=== PATIENT | female | born 1940 | race Caucasian/White ===

== ENCOUNTER → 2017-02-09 | Outpatient (CLI) | payer OTHER | LOC: FIMAGING 15:00 | PROVIDERS: ATTEND Surgery | DX: E04.2 Nontoxic multinodular goiter (principal); Z98.890 Other specified postprocedural states; Z86.79 Personal history of other diseases of the circulatory system | CPT/HCPCS: 76536-PO; 93880-PO ==

== ENCOUNTER 2017-03-21 12:37 | Inpatient (IN) | payer OTHER ==
[2017-03-21] MEDS ORDERED: ONDANSETRON 4 MG/2 ML VIAL IVP ONE (12:54)
--- NOTE | 2017-03-21 13:09 | CPEKG ---
Heart Rate: 96 RR Interval: 625 P-R Interval: 172 QRSD Interval: 80 QT Interval: 344 QTC Interval: 435 P Kirby: 57 QRS Kirby: -2 T Wave Kirby: 79 EKG Severity - ABNORMAL ECG - EKG Impression: SINUS RHYTHM EKG Impression: MINIMAL ST DEPRESSION, ANTEROLATERAL LEADS Electronically Signed By: Juan Pompa 21-Mar-2017 15:08:35
[2017-03-21] MEDS ORDERED: NITROGLYCERIN 0.4 MG BTL SL ONE (13:20)
[2017-03-21] MEDS ORDERED: NITROGLYCERIN 2% 1 GM PACKET TP ONE ×2 (13:20→14:24)
[2017-03-21] MEDS ORDERED: NS 1,000 ML IV ONE (13:21)
[2017-03-21 13:23] LABS: % IMMATURE GRANULYOCYTES 0.8 % (0.0-1.1); ABSOLUTE IMMATURE GRANULOCYTES 0.08 10^3/uL (0.00-0.10); ADD DIFF? NO; ADD MORPH? NO; ADD SCAN? NO; ATYPICAL LYMPHOCYTE FLAG 10 (0-99); FRAGMENT RBC FLAG 0 (0-99); HEMATOCRIT 40.1 % (38.0-47.0); HEMOGLOBIN 14.7 g/dL (12.6-16.3); LEFT SHIFT FLG 0 (0-99); LIPEMIA HEMOLYSIS FLAG 90 (0-99); MEAN CELL HEMOGLOBIN 30.8 pg (27.9-34.1); MEAN CELL HEMOGLOBIN CONCENTR. 36.7 g/dL (32.4-36.7); MEAN CELL VOLUME 84.1 fL (81.5-99.8); MEAN PLATELET VOLUME 9.6 fL (8.7-11.7); PLATELET CLUMPS FLAG 0 (0-99); PLATELET COUNT 410 10^3/uL (150-400); RED BLOOD CELL COUNT 4.77 10^6/uL (4.18-5.33); RED CELL DISTRIBUTION WIDTH 13.1 % (11.5-15.2)
[2017-03-21 13:32] LABS: INR 0.97 (0.83-1.16); PROTIME(PATIENT) 12.6 SEC (12.0-15.0)
[2017-03-21 13:33] LABS: APTT 23.5 SEC (23.0-38.0)
[2017-03-21 13:36] LABS: ANION GAP 19 mEq/L (8-16); CALCIUM 10.6 mg/dL (8.5-10.4); CARBON DIOXIDE 19 mEq/l (22-31); CHLORIDE 89 mEq/L (97-110); CREATININE 0.8 mg/dL (0.6-1.0); GLOMERULAR FILTRATION RATE > 60; GLUCOSE 124 mg/dL (70-100); POTASSIUM 4.6 mEq/L (3.5-5.2); SODIUM 127 mEq/L (134-144)
[2017-03-21 13:46] LABS: TROPONIN I < 0.012 ng/mL (0-0.034)
--- NOTE | 2017-03-21 13:48 | CPEKG ---
Heart Rate: 101 RR Interval: 594 QRSD Interval: 76 QT Interval: 348 QTC Interval: 452 QRS [place]: -12 T Wave [place]: 122 EKG Severity - ABNORMAL ECG - EKG Impression: ATRIAL FIBRILLATION EKG Impression: VENTRICULAR PREMATURE COMPLEX EKG Impression: PROBABLE LVH WITH SECONDARY REPOL ABNRM Electronically Signed By: Juan Pompa 21-Mar-2017 15:08:21
--- NOTE | 2017-03-21 13:54 | EDPHY ---
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 When asked more about that she describes generalized weakness. She also reports nausea intermittently over the past 3 days that is now worse today. She went to the grocery store shortly prior to arrival to check her blood pressure and reports that was diastolic of "150/129." She explains that she went to the grocery store check her pressure because she felt that she had bilateral lower extremity weakness today and after seeing her blood pressure she felt more heaviness in her legs. She also admits some anxiety because of the hypertension and she reports feeling of an numb tongue. In triage our triage nurse Zina noted that the patient seemed to have some difficulty with word finding initially. Patient reports increase nausea as well. ROS: No fevers or chills. Generalized weakness as above. HEENT: No recent URI symptoms. She has no vision changes. No sore throat. Pulmonary: No dyspnea, or cough Cardiovascular:chest pain. She has noticed any heart palpitations. No presyncopal episodes. GI: Nausea but no vomiting. She has mild anorexia. : No complaints Integumentary: No skin rash Neuro: She reports no significant baseline deficits from her prior stroke after stroke rehab. At the moment she describes symmetric bilateral lower extremity weakness without focal weakness. She describes a vague numbness or tingling feeling to her tongue is well. Endocrine: No complaints Complete review of symptoms otherwise negative Source: Patient Exam Limitations: No limitations - Medical/Surgical History Hx Asthma: Yes Hx Chronic Respiratory Disease: Yes Hx Diabetes: No Hx Cardiac Disease: No Hx Renal Disease: No Hx Cirrhosis: No Hx Alcoholism: No Hx HIV/AIDS: No Hx Splenectomy or Spleen Trauma: No Other PMH: HTN, CAROTID STENOSIS, CVA. TIA, Rheumatiod artheritis. Patent foramina ovale. Stroke 12 15 at [facility] thought to be related to a disrupted carotid plaque. Atrial tachycardia - Family History Significant Family History: No pertinent family hx - Social History Smoking Status: Former smoker Alcohol Use: None Drug Use: None Additional Social History: Increased social stressors recently. - Physical Exam Exam: General Appearance: Alert, no distress. Eyes: Pupils equal and round no pallor or injection. ENT, Mouth: Mucous membranes moist. Respiratory: There are no retractions, lungs are clear to auscultation. Cardiovascular: Irregularly irregular with no murmur gallop or rub. No JVD. No peripheral edema. Gastrointestinal: Abdomen is soft and nontender, no masses, bowel sounds normal. Neurological: GCS 15. Cranial nerves 2-12 intact. Confrontational visual espinoza are intact bilaterally. No pronator drift. No upper lower extremity weakness is appreciated. [id number] is normal bilaterally. Skin: Warm and dry, no rashes. Musculoskeletal: Neck is supple nontender. Extremities are symmetrical, full range of motion. Psychiatric: Mood and affect normal DIFFERENTIAL DIAGNOSIS: After history and physical exam differential diagnosis was considered for new onset AFib, metabolic disarray, DE, hypertensive emergency, stroke, TIA, Constitutional: Initial Vital Signs Temperature (C) 36.6 C 03/21/17 12:43 Heart Rate 112 H 03/21/17 12:43 Respiratory Rate 16 03/21/17 12:43 Blood Pressure 200/93 H 03/21/17 12:43 O2 Sat (%) 93 03/21/17 12:43 O2 Delivery Mode Room Air O2 (L/minute) 2 Allergies/Adverse Reactions: aspirin Allergy (Mild, Verified 03/21/17 13:19) Home Medications: Medication Instructions Recorded Atorvastatin Calcium 03/21/17 Cardizem Cd 03/21/17 Cholecalciferol (Vitamin D3) 03/21/17 Clopidogrel 03/21/17 Diflucan 03/21/17 Folic Acid 03/21/17 Herbals/Supplements -Info Only 03/21/17 Lisinopril 03/21/17 Macrodantin 03/21/17 Nexium 03/21/17 Potassium Chloride 03/21/17 Proair Hfa 03/21/17 Triamterene-Hctz 75-50 mg Tab 03/21/17 Tylenol 03/21/17 Ventolin Hfa 03/21/17 Xeljanz 03/21/17 Medical Decision Making - Diagnostics EKG Interpretation: 12 lead EKG performed shortly after arrival reveals sinus rhythm at 96 with PACs -ST depression mild anterolateral leads similar in appearance to an EKG dated by my interpretation. For complete read please refer to trace master. Repeat EKG performed after blood pressure control with nitroglycerin reveals atrial fibrillation at 1:01 a.m.. Intervals: Normal throughout [place]: QRS of-12, T of 122 overall assessment AFib Please refer to trace master for complete interpretation. Imaging Results: Imaging Impressions Head CT 03/21/17 12:50 Impression: 1. Cerebrovascular atherosclerosis. 2. Old infarct left parietal cortex. 3. No acute hemorrhage or definite acute infarct. 4. Consider MRI of the brain without and with contrast enhancement, if there is continued clinical concern. Findings and recommendations discussed with Emergency Department physician, Juan Pompa, at 1305 hours on March 21, 2017. Final report concurs with initial preliminary interpretation. Imaging: Discussed imaging studies w/ manager of school Radiologist ED Course/Re-evaluation: IV normal saline Discussion: Patient with generalized weakness, hypertension, anxiety, findings of hyponatremia, atrial fibrillation and hypertension. Her initial troponin is negative. With initial hypertension nausea at generalized weakness difficulty with word-finding she had a broad diagnosis. We ruled out hemorrhagic stroke. We currently no evidence of ischemic stroke on initial head CT. No focal deficits, cannot rule out cardiac ischemia of the no significant EKG changes other than paroxysmal atrial fibrillation. Her blood pressure improved with nitroglycerin paste. She also feels subjective improvement her symptoms. Elected to hold off on IV nitroglycerin or other blood pressure medications given her initial improvement. Patient warrants admission for treatment of her paroxysmal AFib, hyponatremia and hypertension and generalized weakness. I discussed the case with Dr. Lea, our hospitalist accepts the patient for admission to PCU bed I answer questions regarding the patient's findings and plan with patient and her granddaughter and son. - Data Points Laboratory Results: Laboratory Results 03/21/17 13:13 03/21/17 13:13 03/21/17 03/21/17 03/21/17 13:13 13:13 13:13 WBC 9.59 10^3/uL H 10^3/uL (3.80-9.50) RBC 4.77 10^6/uL 10^6/uL (4.18-5.33) Hgb 14.7 g/dL g/dL (12.6-16.3) Hct 40.1 % % (38.0-47.0) MCV 84.1 fL fL (81.5-99.8) MCH 30.8 pg pg (27.9-34.1) MCHC 36.7 g/dL g/dL (32.4-36.7) RDW 13.1 % % (11.5-15.2) Plt Count 410 10^3/uL H 10^3/uL (150-400) MPV 9.6 fL fL (8.7-11.7) Neut % (Auto) 77.9 % H % (39.3-74.2) Lymph % (Auto) 10.4 % L % (15.0-45.0) Blaine % (Auto) 9.8 % % (4.5-13.0) Eos % (Auto) 0.9 % % (0.6-7.6) Baso % (Auto) 0.2 % L % (0.3-1.7) Nucleat RBC Rel Count 0.0 % % (0.0-0.2) Absolute Neuts (auto) 7.46 10^3/uL H 10^3/uL (1.70-6.50) Absolute Lymphs (auto) 1.00 10^3/uL 10^3/uL (1.00-3.00) Absolute Monos (auto) 0.94 10^3/uL H 10^3/uL (0.30-0.80) Absolute Eos (auto) 0.09 10^3/uL 10^3/uL (0.03-0.40) Absolute Basos (auto) 0.02 10^3/uL 10^3/uL (0.02-0.10) Absolute Nucleated RBC 0.00 10^3/uL 10^3/uL (0-0.01) Immature Gran % 0.8 % % (0.0-1.1) Immature Gran # 0.08 10^3/uL 10^3/uL (0.00-0.10) PT 12.6 SEC SEC (12.0-15.0) INR 0.97 (0.83-1.16) APTT 23.5 SEC SEC (23.0-38.0) Sodium 127 mEq/L L mEq/L (134-144) Potassium 4.6 mEq/L mEq/L (3.5-5.2) Chloride 89 mEq/L L mEq/L (97-110) Carbon Dioxide 19 mEq/l L mEq/l (22-31) Anion Gap 19 mEq/L H mEq/L (8-16) BUN 20 mg/dL mg/dL (7-23) Creatinine 0.8 mg/dL mg/dL (0.6-1.0) Estimated GFR > 60 Glucose 124 mg/dL H mg/dL (70-100) Calcium 10.6 mg/dL H mg/dL (8.5-10.4) Troponin I < 0.012 ng/mL ng/mL (0-0.034) Medications Given: Discontinued Medications Sodium Chloride (Ns) 1,000 mls @ 0 mls/hr IV ONCE ONE PRN Reason: Wide Open Stop: 03/21/17 13:22 Last Admin: 03/21/17 13:15 Dose: 1,000 mls Nitroglycerin (Nitrostat) 0.4 mg SL EDNOW ONE Stop: 03/21/17 13:21 Last Admin: 03/21/17 13:26 Dose: 0.4 mg Nitroglycerin (Nitro-Bid 2%) 0.5 inch TP EDNOW ONE Stop: 03/21/17 13:21 Last Admin: 03/21/17 13:26 Dose: 0.5 inch Ondansetron HCl (Zofran) 4 mg IVP EDNOW ONE Stop: 03/21/17 12:55 Last Admin: 03/21/17 13:15 Dose: 4 mg Departure - Departure Disposition: [facility] Acute Clinical Impression: Paroxysmal atrial fibrillation, Generalized weakness, Hyponatremia Hypertension Qualifiers: Hypertension type: essential hypertension Qualified Code(s): I10 - Essential ( primary) hypertension Condition: Fair
[2017-03-21] MEDS ORDERED: NITROGLYCERIN 2% 1 GM PACKET ONE (14:30)
[2017-03-21] MEDS ORDERED: ONDANSETRON DISINTEGRATING 4 MG TAB PO PRN (18:23)
[2017-03-21] MEDS ORDERED: oxyCODONE IR 5 MG TAB PO PRN (18:23)
[2017-03-21] MEDS ORDERED: ACETAMINOPHEN 325 MG TAB PO PRN (18:23)
[2017-03-21] MEDS ORDERED: ONDANSETRON 4 MG/2 ML VIAL IVP PRN (18:23)
--- NOTE | 2017-03-21 19:06 | GHP ---
[f rep st] HISTORY AND PHYSICAL DATE OF ADMISSION: 03/21/2017 CHIEF COMPLAINT: Weakness. HISTORY OF PRESENT ILLNESS: This is a 76-year-old female with a history of a stroke as well as rheu matoid arthritis who presents with weakness. She says that her legs have been weak on and off in th e mornings recently. Today, was worse; she felt wobbly. Weakness was really nonfocal. She tells m e she has not been eating or drinking very well over the past few days due to anxiety. She also stephanie t on a healthy diet about 3 months ago which has decreased her overall intake. She is followed by [facility], she has a PFO. She had a stroke back in 2014, thought to be due to critica l carotid stenosis. She tells me she is on a blood thinner, she believes that this is not an anti-p latelet, though she does not remember the name or dose. She went to the grocery store today, checke d her blood pressure. She found that her diastolic was 129. When she presented to Urgent Care, she was noted to be in atrial fibrillation. She was given nitrog lycerin for her blood pressure, and an aspirin. She converted. Apparently, this episode was not ca ught on an EKG. PAST MEDICAL/SURGICAL HISTORY: 1. History of a left parietal stroke, thought to be due to critical left-sided carotid stenosis, st atus post CEA. 2. History of a PFO, she tells me she is on anticoagulation though I am not sure what. 3. Rheumatoid arthritis. 4. Hypertension. 5. Hyperlipidemia. 6. Asthma. 7. Osteoarthritis. 8. Peptic ulcer disease. 9. TIA in April of 2014. PAST SURGICAL HISTORY: Hysterectomy, bilateral knee arthroscopy, back surgery. MEDICATIONS: Please see medication reconciliation. ALLERGIES: Aspirin. FAMILY HISTORY: Her mother had a stroke. SOCIAL HISTORY: She quit smoking about 40 years ago. She occasionally drinks alcohol. REVIEW OF SYSTEMS: A 10-point review of systems is conducted and is negative except per HPI. PHYSICAL EXAM: VITAL SIGNS: Blood pressure 142/77, heart rate 88, respiration rate 16, sat 94% on room air. Temperature is 37.1. GENERAL: The patient is a pleasant female, resting comfortably, in no acute distress. HEENT: Normocephalic, atraumatic. CARDIOVASCULAR: Regular rate and rhythm. She has a faint systolic murmur. PULMONARY: Lungs clear to auscultation bilaterally. ABDOMEN: So ft, nontender, nondistended. SKIN: No rash. : No Ross. NEUROLOGIC: Alert and oriented x3. She is moving all extremities. PSYCHIATRIC: Normal mood and affect. EXTREMITIES: Bilateral hands have significant rheumatoid arthritis stigmata. LABS: White count is 9.5, platelets are 410. Sodium is 127, bicarb is 19. Calcium is 10.6. Tropo madelyn is negative. DATA: 1. Savannah Torre discussed this with Dr. Pompa. 2. EKG, which I personally viewed and interpreted, shows her to be in sinus rhythm. She has a PVC as well as a PAC. 3. Head CT shows old stroke but nothing acute. IMPRESSION AND PLAN: This is a 76-year-old female with atrial fibrillation as well as hyponatremia. 1. Atrial fibrillation: She does not carry a previous diagnosis of atrial fibrillation. She is cu rrently in sinus rhythm. In reviewing her EKGs, the 1st EKG was read as atrial fibrillation, though I believe this is normal sinus rhythm. I am unsure if this was actually caught on telemetry or not . Regardless, she is currently rate controlled. I believe she is on a beta alan. Will need to verify this with Pharmacy. She also tells me she is anticoagulated, thus, there would be no additio nal treatment. 2. Hyponatremia: Either due to atrial fibrillation with poor cardiac output if she was in atrial f ibrillation, or decreased food and water intake recently. She received a liter of fluid at Urgent C are. We will recheck her sodium at 10 o'clock tonight, then in the morning. If it does not improve , would check urine studies though I will hold off for now. 3. Hypertension, uncontrolled: Much better currently. She had nitroglycerin paste placed in the [facility]. We will get her back on her cardiac medications and discontinue the nitroglycerin paste , follow her blood pressure. 4. Neurologic issues: She was reported to have some tongue numbness as well as possible word-findi ng difficulties at Urgent Care. She is maximally treated for CVA at this point with anticoagulation and statin. I suspect more that this was bringing out of old deficits from potentially her hyponat remia or hypertension. We will hold off on further workup at this point. She does have a patent fo ramen ovale, which would predispose her to strokes. She has also had a CEA already. 5. Rheumatoid arthritis: Continue home medicines. 6. Thrombocytosis: Recheck tomorrow. 7. Venous thromboembolism risk should be low as she is on anticoagulation. We will need to verify what she is on with Pharmacy. 8. Code status is [id number]. /[id number]/MODL
[2017-03-21] MEDS ORDERED: ALBUTEROL 60 PUFFS/8 GM MDI IH PRN (21:47)
[2017-03-21] MEDS: ATORVASTATIN CALCIUM 40 MG TAB PO SCH (22:17)
[2017-03-21] MEDS: CLOPIDOGREL BISULFATE 75 MG TAB PO SCH (22:17)
[2017-03-21] MEDS: TRIAMTERENE/HCTZ 75/50 1 EACH TAB PO SCH (22:18)
[2017-03-21 22:29] LABS: ANION GAP 10 mEq/L (8-16); CALCIUM 9.6 mg/dL (8.5-10.4); CARBON DIOXIDE 20 mEq/l (22-31); CHLORIDE 94 mEq/L (97-110); CREATININE 1.1 mg/dL (0.6-1.0); GLOMERULAR FILTRATION RATE 49; GLUCOSE 103 mg/dL (70-100); POTASSIUM 3.6 mEq/L (3.5-5.2); SODIUM 124 mEq/L (134-144)
[2017-03-21 22:39] LABS: TROPONIN I < 0.012 ng/mL (0-0.034)
[2017-03-22] MEDS ORDERED: NS 1,000 ML IV SCH (01:30)
[2017-03-22 06:13] LABS: % IMMATURE GRANULYOCYTES 0.5 % (0.0-1.1); ABSOLUTE IMMATURE GRANULOCYTES 0.03 10^3/uL (0.00-0.10); ADD DIFF? NO; ADD MORPH? NO; ADD SCAN? NO; ATYPICAL LYMPHOCYTE FLAG 20 (0-99); FRAGMENT RBC FLAG 0 (0-99); HEMATOCRIT 34.1 % (38.0-47.0); LEFT SHIFT FLG 0 (0-99); LIPEMIA HEMOLYSIS FLAG 90 (0-99); MEAN CELL HEMOGLOBIN 30.6 pg (27.9-34.1); MEAN CELL HEMOGLOBIN CONCENTR. 35.2 g/dL (32.4-36.7); MEAN PLATELET VOLUME 10.1 fL (8.7-11.7); PLATELET CLUMPS FLAG 0 (0-99); PLATELET COUNT 269 10^3/uL (150-400); RED BLOOD CELL COUNT 3.92 10^6/uL (4.18-5.33); RED CELL DISTRIBUTION WIDTH 13.4 % (11.5-15.2)
[2017-03-22 06:20] LABS: ANION GAP 10 mEq/L (8-16); CALCIUM 9.5 mg/dL (8.5-10.4); CARBON DIOXIDE 21 mEq/l (22-31); CHLORIDE 98 mEq/L (97-110); CREATININE 0.7 mg/dL (0.6-1.0); GLOMERULAR FILTRATION RATE > 60; GLUCOSE 80 mg/dL (70-100); POTASSIUM 3.7 mEq/L (3.5-5.2); SODIUM 129 mEq/L (134-144)
[2017-03-22 06:30] LABS: TROPONIN I < 0.012 ng/mL (0-0.034)
[2017-03-22] MEDS: DILTIAZEM CD 120 MG CAP PO SCH (08:11)
[2017-03-22] MEDS: LISINOPRIL 10 MG TAB PO SCH (08:11)
[2017-03-22] MEDS: TRIAMTERENE/HCTZ 75/50 1 EACH TAB PO SCH (08:11)
[2017-03-22] MEDS: POTASSIUM CL 20 MEQ TAB PO SCH (08:11)
[2017-03-22] MEDS: TOFACITINIB CITRATE 5 MG PO SCH ×2 (08:12→20:27)
[2017-03-22] MEDS ORDERED: TOFACITINIB CITRATE 5 MG PO SCH (09:00)
[2017-03-22] MEDS: CLOPIDOGREL BISULFATE 75 MG TAB PO SCH (11:19)
[2017-03-22] MEDS: ATORVASTATIN CALCIUM 40 MG TAB PO SCH (11:19)
--- NOTE | 2017-03-22 16:01 | ECHO ---
[id number] + + [address] : : [place] [address] : : [phone] + + Adult Echocardiographic Report + -------+ :Name: AZEB HE SStudy Date: 03/22/2017 02:08 PM : : Hospital Admission Number: [id number] Locati on: 216: :: 1940 Gender: Female Height: 68 in : :Age: 76 yrs Race: WH Weight: 180 lb : :Reason For Study: Atrial Fibrillation : : BSA: 2.0 meter s2 : + -------+ MMode/2D Measurements \T\ Calculations IVSd: 0.93 cm LVIDd: 4.8 cm FS: 39.6 % Ao root diam: LVPWd: 0.68 cm LVIDs: 2.9 cm EDV(Teich): 3.3 cm 105.4 ml LA dimension: ESV(Teich): 3.8 cm 31.6 ml EF(Teich): 70.1 % LVLd ap4: 7.5 cm SV(MOD-sp4): EDV(MOD-sp4): 59.0 ml 80.0 ml LVLs ap4: 6.5 cm ESV(MOD-sp4): 21.0 ml EF(MOD-sp4): 73.8 % Normal Measurement Values: + + :LVIDd (3.5-5.7cm) IVSd (0.6-1.1cm) LVPWd (0.6-1.1cm) Aortic Root (2.0-3.7cm)Left Atrium (1.5-4.0cm): :LV Vol(d) (76-115ml) LV Vol(s) (29-48ml) Ejec Fraction (50-65%)PV Adam (0.6- 1.2m/s) TV Adam (0.4-1.0m/s) : :MV E Adam (0.8-1.0m/s)MV A Adam (0.3-1.0m/s)LVOT Adam (0.7-1.2m/s) Asc Ao Adam ( 0.9-1.8m/s) : + + Doppler Measurements \T\ Calculations MV E max adam: 68.1 cm/sec Ao mean P.0 mmHg TR max adam: 293.2 cm/sec MV A max adam: 76.5 cm/sec Ao V2 mean: 77.9 cm/sec TR max P.4 mmHg MV E/A: 0.89 Ao V2 VTI: 23.3 cm RAP systole: 5.0 mmHg RVSP(TR): 39.4 mmHg Left Ventricle The left ventricle is normal in size. There is normal left ventricular wall thickness. The left ventricle is hyperdynamic. Ejection Fraction = 70-75%. No regional wall motion abnormalities noted. Right Ventricle The right ventricle is normal in size and function. Atria The left atrial size is normal. Right atrial size is normal. The interatrial septum is intact with no evidence for an atrial septal defect. Mitral Valve The mitral valve is normal. Borderline bileaflet mitral valve prolapse. There is no mitral valve stenosis. There is mild mitral regurgitation. Tricuspid Valve Normal tricuspid valve. There is trace to mild tricuspid regurgitation. Aortic Valve The aortic valve is trileaflet. The aortic valve opens well. There is no aortic stenosis. There is no aortic insufficiency. Pulmonic Valve The pulmonic valve is normal in structure and function. Trace pulmonic valvular regurgitation. Great Vessels The aortic root is normal size. Pericardium/Pleural There is a fat pad seen. trivial pericardial effusion. Conclusion A complete two-dimensional transthoracic echocardiogram was performed (2D, M-mode, Doppler and color flow Doppler). Normal LV size and wall motion. The left ventricle is hyperdynamic. Ejection Fraction = 70-75%. Borderline bileaflet mitral valve prolapse. There is mild mitral regurgitation. There is trace to mild tricuspid regurgitation. Moderately elevated RVSP. Trace pulmonic valvular regurgitation. There is a fat pad seen. Trivial pericardial effusion. Final Reading Physician: Ramakrishna Leong signed on 03/22/2017 04:00 PM Ordering Physician: Raudel Niño Performed By: Santa Irving RDCS
[2017-03-22] MEDS ORDERED: SODIUM CHLORIDE 1,000 MG TAB PO ONE (19:17)
--- NOTE | 2017-03-22 19:22 | HOSPPROG ---
Hospitalist Progress Note Assessment/Plan: DIAGNOSES: -Hyponatremia, euvolemic - a urine sodium would be helpful diagnostically and mechanistically at this point -Sinus rhythm with frequent PACs - I reviewed her EKGs in cardiac monitoring in detail with Dr. Garvin. There is no definite atrial fibrillation but there are frequent PACs. Notably the patient had the same scenario when she was here for stroke a couple years ago when she was originally diagnosed with atrial fibrillation but on further review the diagnosis was changed to atrial tachycardia. She subsequently had outpatient cardiac monitoring with Dr. Rivera showing no atrial fibrillation -Multiple symptoms that she presents with including weakness, decreased appetite , weakness and gait instability, are likely due to her hyponatremia - history of stroke PLANS: -continue to follow her sodium closely and make sure that it does not decline any further -Will check a urine sodium as well as TSH to look for possible causes are mechanisms - continue food service utility worker at this time to be certain that we truly do not see atrial fibrillation -Continue her usual cardiac medications and Plavix at this time SUBJECTIVE: The patient feels much better overall today, with improvement in all of her presenting symptoms. In addition the daughter notes that the patient looks much better to her as well today and is ambulating better and mentating better overall than she has for some time OBJECTIVE Vitals reviewed: stable without fever Talent Management Manager, my review: on careful review this is a sinus rhythm with frequent PACs Exam: alert oriented skin warm dry color ok resps not labored lungs clear BSs heart regular abd soft nondistended nontender, bowel sounds present limbs warm, no edema iv site ok Objective: Vital Signs Temp Pulse Resp BP Pulse Ox 36.6 C 64 20 104/66 95 03/22/17 16:00 03/22/17 16:00 03/22/17 08:00 03/22/17 16:00 03/22/17 16:00 Laboratory Results 03/22/17 04:51 03/22/17 04:51 03/21/17 03/22/17 03/23/17 06:59 06:59 06:59 Intake Total 1300 1000 Balance 1300 1000 PT 12.6 SEC (12.0-15.0) 03/21/17 13:13 INR 0.97 (0.83-1.16) 03/21/17 13:13 ICD10 Worksheet Patient Problems: Problems Problem Status Onset Generalized weakness Acute Hypertension Acute Hyponatremia Acute Paroxysmal atrial fibrillation Acute Atrial fibrillation Acute Light headed Acute Stroke Acute TIA (transient ischemic attack) Acute
--- NOTE | 2017-03-22 19:25 | HOSPPROG ---
Hospitalist Progress Note Assessment/Plan: DIAGNOSES: -Hyponatremia, euvolemic - a urine sodium would not likely be helpful diagnostically and mechanistically at this point due to her diuretic but will check, and will check tsh and cortisol -this may all be due to her diuretic -Sinus rhythm with frequent PACs - I reviewed her EKGs in cardiac monitoring in detail with Dr. Garvin. There is no definite atrial fibrillation but there are frequent PACs. Notably the patient had the same scenario when she was here for stroke a couple years ago when she was originally diagnosed with atrial fibrillation but on further review the diagnosis was changed to atrial tachycardia. She subsequently had outpatient cardiac monitoring with Dr. Rivera showing no atrial fibrillation -Multiple symptoms that she presents with including weakness, decreased appetite , weakness and gait instability, are likely due to her hyponatremia -history of stroke PLANS: -will stop her diuretic and she may need other BP medicine -continue to follow her sodium closely and make sure that it does not decline any further -Will check a urine sodium as well as TSH to look for possible causes are mechanisms -continue cardiac cath tech at this time to be certain that we truly do not see atrial fibrillation -Continue her usual cardiac medications and Plavix at this time SUBJECTIVE: The patient feels much better overall today, with improvement in all of her presenting symptoms. In addition the daughter notes that the patient looks much better to her as well today and is ambulating better and mentating better overall than she has for some time OBJECTIVE Vitals reviewed: stable without fever Leather Cutter, my review: on careful review this is a sinus rhythm with frequent PACs Exam: alert oriented skin warm dry color ok resps not labored lungs clear BSs heart regular abd soft nondistended nontender, bowel sounds present limbs warm, no edema iv site ok Objective: Vital Signs Temp Pulse Resp BP Pulse Ox 36.6 C 64 20 104/66 95 03/22/17 16:00 03/22/17 16:00 03/22/17 08:00 03/22/17 16:00 03/22/17 16:00 Laboratory Results 03/22/17 04:51 03/22/17 04:51 03/21/17 03/22/17 03/23/17 06:59 06:59 06:59 Intake Total 1300 1000 Balance 1300 1000 PT 12.6 SEC (12.0-15.0) 03/21/17 13:13 INR 0.97 (0.83-1.16) 03/21/17 13:13 ICD10 Worksheet Patient Problems: Problems Problem Status Onset Generalized weakness Acute Hypertension Acute Hyponatremia Acute Paroxysmal atrial fibrillation Acute Atrial fibrillation Acute Light headed Acute Stroke Acute TIA (transient ischemic attack) Acute
[2017-03-23 04:59] LABS: ANION GAP 11 mEq/L (8-16); CALCIUM 9.5 mg/dL (8.5-10.4); CARBON DIOXIDE 21 mEq/l (22-31); CHLORIDE 94 mEq/L (97-110); CREATININE 0.6 mg/dL (0.6-1.0); GLOMERULAR FILTRATION RATE > 60; GLUCOSE 98 mg/dL (70-100); POTASSIUM 3.1 mEq/L (3.5-5.2); SODIUM 126 mEq/L (134-144)
[2017-03-23 05:26] LABS: CORTISOL-AM 9.8 ug/dL (4.5-22.7)
[2017-03-23] MEDS: POTASSIUM CL 20 MEQ TAB PO SCH (08:31)
[2017-03-23] MEDS: DILTIAZEM CD 120 MG CAP PO SCH (08:32)
--- NOTE | 2017-03-23 10:43 | GCON ---
[f rep st] CONSULTATION CARDIOLOGY CONSULTATION DATE OF CONSULTATION: 03/22/2017 PRIMARY SUPERVISOR P[employer]ER PRODUCTS: Dr. Rivera. REASON FOR CONSULTATION: We were asked by Dr. Niño to evaluate this patient for her possible atrial fibrillation and presentation of weakness and hypertension. HISTORY OF PRESENT ILLNESS: The patient is a 76-year-old female who is typically followed by Dr. Rivera. She has a history of carotid stenosis, status post carotid endarterectomy, history of left parietal stroke, history of a small PFO seen on YFN, hypertension, dyslipidemia, rheumatoid arthritis, who was admitted via the emergency department for weakness, nausea, and worsening blood pressure. She reports onset of weakness over the past few weeks. She admits to poor p.o. intake due to this. She denies any focal deficits with her weakness. She also admits to worsening home stress as she has decided to sell her home and move to a different area. She was in a grocery store and checked her blood pressure and found it to be severely elevated with a diastolic blood pressure of 129. She denies any previous history of such elevated pressures as she has been on medical management for this. She has worn event monitors in our office that showed short runs of atrial tachycardia and a very brief run of AFib lasting 3 seconds. The monitor was dated 11/26/2015. She has not been noting any palpitations, chest pains, or dyspnea per se. ECG in the emergency department was interpreted as atrial fibrillation. She was therefore sent over for observation. Currently, she reports feeling improved. She does have chronic pain that limits her mobility, primarily in her knees. PAST MEDICAL HISTORY: 1. History of left parietal stroke thought to be related to a critical left- sided carotid stenosis, status post carotid endarterectomy. 2. PFO found on 10/28/2015 on YFN. 3. History of rheumatoid arthritis. 4. History of hypertension. 5. Dyslipidemia. 6. Asthma. 7. Osteoarthritis. 8. Peptic ulcer disease. 9. TIA in April of 2014. PAST SURGICAL HISTORY: Hysterectomy, bilateral knee arthroscopy, and back surgery. MEDICATIONS: Outpatient medications include atorvastatin, Tylenol, potassium, clopidogrel, vitamin D3, folic acid, Maxzide, Xeljanz, lisinopril, albuterol, diltiazem ER. ALLERGIES: To aspirin. FAMILY HISTORY: Mother with a stroke. SOCIAL HISTORY: The patient smoked for 40 years. She is a nonsmoker currently. She reports occasional alcohol intake. Marital status is . REVIEW OF SYSTEMS: As per HPI, a complete 10-point review of systems was obtained and is negative except for what is dictated. PHYSICAL EXAMINATION: VITAL SIGNS: BP of 103/52, heart rate of 81, respirations 16, O2 saturation 96% on room air, temp of 98.8 degrees Fahrenheit. GENERAL: She is a very pleasant female, in no apparent distress. HEENT: Head is normocephalic, atraumatic. Eyes are PERRL, without scleral icterus. NECK: Supple, without carotid bruit. Trachea is midline. SKIN: Warm and dry, without edema present. HEART: Regular rate and rhythm, with occasional extrasystolic beat auscultated. LUNGS: Clear. ABDOMEN: Soft, with normoactive bowel sounds. : No Ross present. PSYCH: Normal mood and affect for a given situation. NEURO: No focal deficits detected. MUSCULOSKELETAL: Arthritic deformities particularly noted in the bilateral hands. LABORATORY DATA: CBC with WBC 5.78, hemoglobin 12, hematocrit 34, platelet count of 269. BMP with sodium 126, potassium 3.1, chloride 94, CO2 21, BUN 14, creatinine 0.6, glucose 98. Troponins negative x3. Head CT from 03/21/2017 reviewed, shows cerebrovascular atherosclerosis with an old parietal cortex infarct. 12-lead ECG, personally interpreted demonstrates sinus rhythm, 1 PVC present. There are PACs present. Echocardiogram shows EF of 70% to 75%, hyperdynamic LV, borderline bileaflet mitral valve prolapse, mild MR, moderately elevated RVSP. A 10/28/2015 YFN reviewed which shows aneurysmal atrial septum with PFO present. I spoke with both Dr. Garvin and Dr. Niño regarding patient's care. IMPRESSION AND PLAN: The patient is a 76-year-old female who presents with weakness and hyponatremia. 1. Arrhythmias. Patient has a history of atrial tachycardia and PACs. Telemetry monitoring here is notable for frequent premature atrial contractions and premature ventricular contractions. No atrial fibrillation detected. She may be continued on clopidogrel as aspirin is listed as an allergy. 2. Hyponatremia. This is being managed by the hospital medicine group and is likely related to dehydration and poor p.o. intake. 3. Hypertension. She apparently had a very elevated blood pressure outside of the hospital. Upon arrival, she was 200/93, however, her blood pressures have been well controlled since admission. When further questioned, she admits that she may have missed some doses of her medicines. The patient is deemed safe from a cardiology perspective to be discharged to home with outpatient followup. She may follow up with Dr. Rivera in 1-2 months. /[id number]/MODL MTDD
[2017-03-23 10:50] VITALS: BP 129/72; PULSE 82; RESP 17; TEMP 98.6; O2SAT 94
[2017-03-23] MEDS: LISINOPRIL 10 MG TAB PO SCH (10:52)
[2017-03-23] MEDS: TOFACITINIB CITRATE 5 MG PO SCH ×2 (10:53→13:08)
[2017-03-23] MEDS ORDERED: SODIUM CHLORIDE 1,000 MG TAB PO ONE (11:04)
[2017-03-23] MEDS ORDERED: POTASSIUM CL 20 MEQ/15 ML UDCUP PO ONE (11:04)
[2017-03-23] MEDS ORDERED: POTASSIUM CL 20 MEQ TAB PO ONE (11:15)
[2017-03-23] MEDS: CLOPIDOGREL BISULFATE 75 MG TAB PO SCH (11:24)
[2017-03-23] MEDS: ATORVASTATIN CALCIUM 40 MG TAB PO SCH (11:24)
[2017-03-23 13:43] LABS: ANION GAP 12 mEq/L (8-16); CARBON DIOXIDE 23 mEq/l (22-31); CHLORIDE 93 mEq/L (97-110); CREATININE 0.9 mg/dL (0.6-1.0); GLOMERULAR FILTRATION RATE > 60; GLUCOSE 111 mg/dL (70-100); POTASSIUM 3.8 mEq/L (3.5-5.2); SODIUM 128 mEq/L (134-144)
--- NOTE | 2017-03-23 18:50 | PDDCSUM ---
Discharge Summary Discharge Summary: DISCHARGE DIAGNOSES: -Hyponatremia, Hypovolemic and suspected due to her diuretic therapy as well as decreased oral intake of food and solute, unable to rule out contribution of SIADH -hypokalemia due to her diuretic medication -Sinus rhythm with frequent PACs -Presenting symptoms of weakness, decreased appetite, weakness and gait instability, are likely due to her hyponatremia, and no resolved with management here -chronic hypertension with good blood pressure good control here in the hospital off of her diuretic -history of stroke PROCEDURES: CT scan of head with no acute abnormalities HOSPITAL COURSE SUMMARY: The patient presented to the hospital with multiple symptoms including weakness gait instability decreased appetite wooziness and slowed mentation. She is found have significant hyponatremia which is felt to be the cause of the symptoms. She has dramatically improved with treatment of her dehydration and hyponatremia, and feels back to her baseline in terms of symptoms. She is eating well ambulating well and is felt stable for discharge to home. She is advised that she will not likely do well with thiazide diuretic therapy in the future and this medicine is discontinued at this point. She is advised to check her blood pressure twice daily and follow up with Dr. Elizalde next week bringing the blood pressure numbers in for review. She may need to add further blood pressure medication but she remains on 2 other blood pressure medicines at this time. At the time of admission the patient had EKGs and was felt to have atrial fibrillation. However on careful review of her EKGs and cardiac rhythm strip with Cardiology this is felt to be sinus rhythm with frequent PACs. The patient had similar episode a year and half ago when she presented with a stroke. At that time her stroke was felt to be due to atherosclerotic unstable plaque in the carotid vessels. At that time she feet similarly was initially diagnosed with atrial fibrillation but on similar review was felt to be in sinus rhythm with PACs. Subsequent to that hospital admission she had outpatient cardiac monitoring which demonstrated no atrial fibrillation. At this time there is no recommendation for any change in treatment and she is to continue her Plavix therapy. PENDING TEST RESULTS: No pending results test results The patient should have follow-up electrolyte testing with Dr. Bryant next week MEDICATION CHANGES: Discontinue triamterene hydrochlorothiazide FOLLOW-UP PLAN: With Dr. Elizalde next week She will collect blood pressures twice daily to take in for review with Dr. Hakan nicole Greater than 35 minutes bedside and care coordination time today
== END 2017-03-23 17:19 | disposition home or self-care (01) | DRG 641 ==
LOC: CED 12:37 → INTOOBSV 14:01 → CEDHOLD 14:01 → F2W 17:27 → OBSVTOIN 03-22 19:56
PROVIDERS: ADMIT Student in an Organized Health Care Education/Training Program; ATTEND Internal Medicine
DX: E87.1 Hypo-osmolality and hyponatremia (principal); E87.6 Hypokalemia; I48.0 Paroxysmal atrial fibrillation; Q21.1 Atrial septal defect; I49.1 Atrial premature depolarization; F41.9 Anxiety disorder, unspecified; M06.9 Rheumatoid arthritis, unspecified; I10 Essential (primary) hypertension; E78.5 Hyperlipidemia, unspecified; J45.909 Unspecified asthma, uncomplicated; K27.9 Peptic ulcer, site unspecified, unspecified as acute or chronic, without hemorrhage or perforation; Z66 Do not resuscitate; Z86.73 Personal history of transient ischemic attack (TIA), and cerebral infarction without residual deficits
CPT/HCPCS: 70450-PO; 80048-PO; 84484-PO; 85025-PO; 85610-PO; 85730-PO; 96374; 97116-GP; 97161-GP; G0378; G8978-GP-CI; G8979-GP-CI; G8980-GP-CI; J2405

== ENCOUNTER 2017-03-25 16:25 | Emergency (ER) | payer OTHER ==
[2017-03-25 16:38] VITALS: RESP 16; TEMP 98.2
--- NOTE | 2017-03-25 17:21 | EDPHY ---
H & P Stated Complaint: high blood pressures HPI/ROS: CHIEF COMPLAINT: High blood pressure History by patient HISTORY OF PRESENT ILLNESS: 76-year-old woman with a history of hypertension and stroke in the past who was discharged from the hospital 2 days ago after an episode of hyponatremia thought felt to be due to her diuretic presents today with elevated blood pressure reading at the grocery store. Patient was discharged after being taken off of her diuretic and told to monitor her blood pressure twice a day. She went to the grocery store to check her blood pressure this afternoon and noted that it was 154/90 something and became concerned that the bottom number was too high. This made her feel panicky and gave her palpitations. Patient has been worked up for palpitations in the past and has been told that she does not have atrial fibrillation but that she has multiple premature atrial contractions. Today while her blood pressure was elevated she denied any chest pain, shortness of breath, focal numbness or weakness or other problems. She has felt that her shoes were slightly tight but does not think that her legs look swollen. She has not gained any weight. Patient does note that last night she ate fried chicken from the grocery store and an [place] salad that had msg in it and that she has had these kind of symptoms after eating msg in the past. In addition she notes this was an excessively salty meal. Patient states she is currently asymptomatic and feels more calm now that she knows her blood pressure is better. REVIEW OF SYSTEMS: As in HPI, and all other systems reviewed and are negative Source: Patient - Medical/Surgical History Hx Asthma: Yes Hx Chronic Respiratory Disease: Yes Hx Diabetes: No Hx Cardiac Disease: No Hx Renal Disease: No Hx Cirrhosis: No Hx Alcoholism: No Hx HIV/AIDS: No Hx Splenectomy or Spleen Trauma: No Other PMH: HTN, CAROTID STENOSIS, CVA. TIA, Rheumatiod artheritis. Patent foramina ovale. Stroke 12 15 at [facility] thought to be related to a disrupted carotid plaque. Atrial tachycardia - Family History Significant Family History: No pertinent family hx - Social History Smoking Status: Former smoker - Physical Exam Exam: General Appearance: Alert, comfortable non-ill appearing. Eyes: Pupils equal and round no pallor or injection. ENT, Mouth: Mucous membranes moist. Respiratory: Normal, effort, There are no retractions, lungs are clear to auscultation. Cardiovascular: Regular rate and rhythm. Gastrointestinal: Abdomen is soft and nontender, no masses, bowel sounds normal. Neurological: Awake, alert and oriented x 3, no pronator drift, normal gait, no pronator drift, normal gait Skin: Warm and dry, no rashes. Musculoskeletal: Neck is supple nontender. Extremities are symmetrical, full range of motion. DP pulses 2+ and equal bilaterally, trace pretibial edema on the left, no edema on the right Psychiatric: Patient has normal affect, there is no agitation. Constitutional: Initial Vital Signs Temperature (C) 36.8 C 03/25/17 16:34 Heart Rate 90 03/25/17 16:34 Respiratory Rate 16 03/25/17 16:34 Blood Pressure 172/149 H 03/25/17 16:34 O2 Sat (%) 96 03/25/17 16:34 O2 Delivery Mode Room Air Allergies/Adverse Reactions: aspirin Allergy (Mild, Verified 03/25/17 16:38) Home Medications: Medication Instructions Recorded Acetaminophen [Tylenol ES 500 mg 1,000 mg PO Q2D PRN 03/21/17 (*)] Albuterol [Proventil Inhaler HFA 1 - 2 puffs IH Q4H PRN 03/21/17 (*)] Atorvastatin Calcium [Lipitor 40 40 mg PO DAILY@12 03/21/17 mg (*)] Cholecalciferol Vit D3 [Vitamin D3 10,000 units PO DAILY 03/21/17 (*)] Clopidogrel Bisulfate [Plavix (*)] 75 mg PO DAILY@12 03/21/17 Diltiazem HCl [Diltiazem 24Hr ER] 120 mg PO DAILY 03/21/17 Folic Acid [Folic Acid 1 MG (*)] 1 mg PO DAILY 03/21/17 Lisinopril [Zestril 10 mg (*)] 10 mg PO DAILY 03/21/17 Tofacitinib Citrate [Xeljanz] 5 mg PO BID 03/21/17 Medical Decision Making ED Course/Re-evaluation: [age] woman with a history of hypertension who was discharged from hospital 2 days ago because of hyponatremia related to her diuretic which she is now no longer taking presents today because her blood pressure was high when she checked it at the grocery store. Patient was essentially asymptomatic with this. He she has had an extensive recent workup for palpitations and is known to have multiple PACs frequently confused or atrial fibrillation. Today there is no evidence of acute hypertensive emergency. She has also had a high salt load yesterday evening. She has an appointment pending with her primary care physician in 4 days. There is no significant leg edema. I therefore think it is reasonable to discharge her with close follow-up with her primary care physician to decide what to do about her blood pressure medication. We discussed return precautions and signs and symptoms of hypertensive emergencies. Patient expressed verbal understanding of the plan. Departure - Departure Disposition: Home, Routine, Self-Care Clinical Impression: Elevated blood pressure reading Condition: Good Instructions: Chronic Hypertension (ED) Additional Instructions: You were seen by Dr. Emelia Silverman today. Continues taking medicines as prescribed. Follow up with your doctor as scheduled on Tuesday to discuss the need for restarting a diuretic medication or additional blood pressure medications. If you are going to check her blood pressure comma tried checking early in the morning when he 1st get up. Return for any worsening or new concerns. Referrals: Angie Elizalde MD [Primary Care Provider] - As per Instructions
[2017-03-25 17:38] VITALS: BP 178/94; PULSE 84; O2SAT 95
== END 2017-03-25 17:00 | disposition home or self-care (01) ==
LOC: CED 16:25
DX: I10 Essential (primary) hypertension (principal); J45.909 Unspecified asthma, uncomplicated; Z86.73 Personal history of transient ischemic attack (TIA), and cerebral infarction without residual deficits; Z87.891 Personal history of nicotine dependence

== ENCOUNTER 2017-04-27 18:02 | Emergency (ER) | payer OTHER ==
[2017-04-27 18:53] LABS: INR 0.95 (0.83-1.16); PROTIME(PATIENT) 12.6 SEC (12.0-15.0)
[2017-04-27 18:54] LABS: APTT 24.1 SEC (23.0-38.0)
[2017-04-27 18:56] LABS: ANION GAP 15 mEq/L (8-16); CALCIUM 10.6 mg/dL (8.5-10.4); CARBON DIOXIDE 19 mEq/l (22-31); CHLORIDE 106 mEq/L (97-110); CREATININE 1.2 mg/dL (0.6-1.0); GLOMERULAR FILTRATION RATE 44; GLUCOSE 104 mg/dL (70-100); POTASSIUM 3.6 mEq/L (3.5-5.2); SODIUM 140 mEq/L (134-144)
--- NOTE | 2017-04-27 19:12 | CPEKG ---
Heart Rate: 106 RR Interval: 566 P-R Interval: 200 QRSD Interval: 74 QT Interval: 340 QTC Interval: 452 P [place]: 60 QRS [place]: -18 T Wave [place]: 125 EKG Severity - ABNORMAL ECG - EKG Impression: SINUS TACHYCARDIA EKG Impression: LVH WITH SECONDARY REPOLARIZATION ABNORMALITY Electronically Signed By: Dejuan Montelongo 27-Apr-2017 22:23:15
[2017-04-27 19:14] LABS: % IMMATURE GRANULYOCYTES 0.5 % (0.0-1.1); ABSOLUTE IMMATURE GRANULOCYTES 0.05 10^3/uL (0.00-0.10); ADD DIFF? NO; ADD MORPH? NO; ADD SCAN? NO; ATYPICAL LYMPHOCYTE FLAG 0 (0-99); FRAGMENT RBC FLAG 0 (0-99); HEMATOCRIT 39.8 % (38.0-47.0); HEMOGLOBIN 13.7 g/dL (12.6-16.3); LEFT SHIFT FLG 0 (0-99); LIPEMIA HEMOLYSIS FLAG 90 (0-99); MEAN CELL HEMOGLOBIN 30.7 pg (27.9-34.1); MEAN CELL HEMOGLOBIN CONCENTR. 34.4 g/dL (32.4-36.7); MEAN CELL VOLUME 89.2 fL (81.5-99.8); MEAN PLATELET VOLUME 9.8 fL (8.7-11.7); PLATELET CLUMPS FLAG 0 (0-99); PLATELET COUNT 346 10^3/uL (150-400); RED BLOOD CELL COUNT 4.46 10^6/uL (4.18-5.33); RED CELL DISTRIBUTION WIDTH 13.2 % (11.5-15.2)
[2017-04-27 19:28] LABS: COLOR YELLOW; LEUKOCYTE ESTERASE,URINE 2+ (NEGATIVE); NITRITE,URINE NEGATIVE (NEGATIVE)
--- NOTE | 2017-04-27 19:29 | EDPHY ---
H & P Stated Complaint: bleeding from mouth HPI/ROS: Chief Complaint: Bleeding from mouth HPI: 76-year-old woman developed bleeding from the mouth this afternoon. Patient did bite the inside of her cheek earlier today. She did not notice any problems until she felt the sensation of something back her throat. She coughed and brought up a clot of blood. She is on blood thinners for an irregular heartbeat. No lightheadedness or syncope. No chest pain or palpitations. Has not had any nose bleeds. Has not had any congestion or significant cough. ROS: 10 point Review of Systems is negative except as noted in the HPI. PMH: Irregular heartbeat Social History: No smoking, no alcohol, no recreational drug use Family History: non-contributory Physical Exam: Gen: Awake, Alert, No Distress HEENT: Nose: no rhinorrhea, no epistaxis Eyes: PERRLA, EOMI Mouth: Moist mucosa, active bleeding from the inside of her right cheek from a open laceration about 3 mm, no other source of bleeding noted Neck: Supple, no JVD Chest: nontender, lungs clear to auscultation Heart: S1, S2 normal, no murmur Abd: Soft, non-tender, no guarding Back: no CVA tenderness, no midline tenderness Ext: no edema, non-tender Skin: no rash Neuro: CN II-XII intact, Sensation grossly intact, Strength 5/5 in bilateral upper and lower extremities - Personal History Current Tetanus Diphtheria and Acellular Pertussis (TDAP): Unsure - Medical/Surgical History Hx Asthma: Yes Hx Chronic Respiratory Disease: Yes Hx Diabetes: No Hx Cardiac Disease: No Hx Renal Disease: No Hx Cirrhosis: No Hx Alcoholism: No Hx HIV/AIDS: No Hx Splenectomy or Spleen Trauma: No Other PMH: HTN, CAROTID STENOSIS, CVA. TIA, Rheumatiod artheritis. Patent foramina ovale. Stroke 12 15 at [facility] thought to be related to a disrupted carotid plaque. Atrial tachycardia - Social History Smoking Status: Former smoker Constitutional: Initial Vital Signs Temperature (C) 37.3 C 04/27/17 18:22 Heart Rate 121 H 04/27/17 18:22 Respiratory Rate 18 04/27/17 18:22 Blood Pressure 186/143 H 04/27/17 18:22 O2 Sat (%) 98 04/27/17 18:22 O2 Delivery Mode Nasal Cannula O2 (L/minute) 2 Allergies/Adverse Reactions: aspirin Allergy (Mild, Verified 03/25/17 16:38) Home Medications: Medication Instructions Recorded Acetaminophen [Tylenol ES 500 mg 1,000 mg PO Q2D PRN 03/21/17 (*)] Albuterol [Proventil Inhaler HFA 1 - 2 puffs IH Q4H PRN 03/21/17 (*)] Atorvastatin Calcium [Lipitor 40 40 mg PO DAILY@12 03/21/17 mg (*)] Cholecalciferol Vit D3 [Vitamin D3 10,000 units PO DAILY 03/21/17 (*)] Clopidogrel Bisulfate [Plavix (*)] 75 mg PO DAILY@12 03/21/17 Diltiazem HCl [Diltiazem 24Hr ER] 120 mg PO DAILY 03/21/17 Folic Acid [Folic Acid 1 MG (*)] 1 mg PO DAILY 03/21/17 Lisinopril [Zestril 10 mg (*)] 10 mg PO DAILY 03/21/17 Tofacitinib Citrate [Xeljanz] 5 mg PO BID 03/21/17 Nitrofurantoin Monohyd/M-Cryst 100 mg PO BID #10 capsule 04/27/17 [Macrobid 100 mg Capsule] Medical Decision Making - Diagnostics EKG Interpretation: ECG time 7:10 p.m., sinus tachycardia rate of 106, normal axis, LVH with some secondary repolarization abnormality. No acute ST or T-wave changes. ED Course/Re-evaluation: Patient arrived very tachycardic and hypertensive. After bleeding was addressed ECG was obtained and showed a sinus tachycardia with a rate of 106, no acute abnormalities. Blood pressure came down to 175 systolic as well. Bleeding was treated with an injection of lidocaine with epinephrine. Direct pressure was applied 45 minutes. She had no further bleeding. Coags are normal. CBC is normal. Patient has been discharged with instructions to apply direct pressure with a piece of gauze and patient between her fingers for 30 minutes - Data Points Laboratory Results: Laboratory Results 04/27/17 19:06 04/27/17 18:35 04/27/17 04/27/17 04/27/17 19:20 19:06 18:35 WBC 10.63 10^3/uL H 10^3/uL (3.80-9.50) RBC 4.46 10^6/uL 10^6/uL (4.18-5.33) Hgb 13.7 g/dL g/dL (12.6-16.3) Hct 39.8 % % (38.0-47.0) MCV 89.2 fL fL (81.5-99.8) MCH 30.7 pg pg (27.9-34.1) MCHC 34.4 g/dL g/dL (32.4-36.7) RDW 13.2 % % (11.5-15.2) Plt Count 346 10^3/uL 10^3/uL (150-400) MPV 9.8 fL fL (8.7-11.7) Neut % (Auto) 83.0 % H % (39.3-74.2) Lymph % (Auto) 8.3 % L % (15.0-45.0) [place] % (Auto) 6.8 % % (4.5-13.0) Eos % (Auto) 1.1 % % (0.6-7.6) Baso % (Auto) 0.3 % % (0.3-1.7) Nucleat RBC Rel Count 0.0 % % (0.0-0.2) Absolute Neuts (auto) 8.83 10^3/uL H 10^3/uL (1.70-6.50) Absolute Lymphs (auto) 0.88 10^3/uL L 10^3/uL (1.00-3.00) Absolute Monos (auto) 0.72 10^3/uL 10^3/uL (0.30-0.80) Absolute Eos (auto) 0.12 10^3/uL 10^3/uL (0.03-0.40) Absolute Basos (auto) 0.03 10^3/uL 10^3/uL (0.02-0.10) Absolute Nucleated RBC 0.00 10^3/uL 10^3/uL (0-0.01) Immature Gran % 0.5 % % (0.0-1.1) Immature Gran # 0.05 10^3/uL 10^3/uL (0.00-0.10) PT INR APTT Sodium 140 mEq/L mEq/L (134-144) Potassium 3.6 mEq/L mEq/L (3.5-5.2) Chloride 106 mEq/L mEq/L (97-110) Carbon Dioxide 19 mEq/l L mEq/l (22-31) Anion Gap 15 mEq/L mEq/L (8-16) BUN 23 mg/dL mg/dL (7-23) Creatinine 1.2 mg/dL H mg/dL (0.6-1.0) Estimated GFR 44 Glucose 104 mg/dL H mg/dL (70-100) Calcium 10.6 mg/dL H mg/dL (8.5-10.4) Urine Color YELLOW Urine Appearance HAZY Urine pH 7.0 (5.0-7.5) Ur Specific [place] 1.013 (1.002-1.030) Urine Protein NEGATIVE (NEGATIVE) Urine Ketones TRACE H (NEGATIVE) Urine Blood 2+ H (NEGATIVE) Urine Nitrate NEGATIVE (NEGATIVE) Urine Bilirubin NEGATIVE (NEGATIVE) Urine Urobilinogen NEGATIVE EU EU (0.2-1.0) Ur Leukocyte Esterase 2+ H (NEGATIVE) Urine RBC Pending Urine WBC Pending Ur Epithelial Cells Pending Urine Glucose NEGATIVE (NEGATIVE) 04/27/17 18:35 WBC RBC Hgb Hct MCV MCH MCHC RDW Plt Count MPV Neut % (Auto) Lymph % (Auto) [place] % (Auto) Eos % (Auto) Baso % (Auto) Nucleat RBC Rel Count Absolute Neuts (auto) Absolute Lymphs (auto) Absolute Monos (auto) Absolute Eos (auto) Absolute Basos (auto) Absolute Nucleated RBC Immature Gran % Immature Gran # PT 12.6 SEC SEC (12.0-15.0) INR 0.95 (0.83-1.16) APTT 24.1 SEC SEC (23.0-38.0) Sodium Potassium Chloride Carbon Dioxide Anion Gap BUN Creatinine Estimated GFR Glucose Calcium Urine Color Urine Appearance Urine pH Ur Specific [place] Urine Protein Urine Ketones Urine Blood Urine Nitrate Urine Bilirubin Urine Urobilinogen Ur Leukocyte Esterase Urine RBC Urine WBC Ur Epithelial Cells Urine Glucose Departure - Departure Disposition: Home, Routine, Self-Care Clinical Impression: Laceration of mouth, internal, UTI (urinary tract infection) Condition: Good Instructions: Laceration Without Closure (ED), Urinary Tract Infection in Women (ED) Additional Instructions: If your mouth begins bleeding again placed a piece of gauze in your cheek and pinch the area between your fingers and apply pressure for 30 minutes. If bleeding persists after this present return emergency department for further evaluation. Referrals: Angie Elizalde MD [Primary Care Provider] - As per Instructions Prescriptions: Nitrofurantoin Monohyd/M-Cryst [Macrobid 100 mg Capsule] 100 mg PO BID #10 capsule
[2017-04-27 19:52] LABS: BACTERIA 3+ /hpf (NONE SEEN); MUCUS TRACE /lpf (NONE-1+); WBC,URINE 15-25 /hpf (0-3)
[2017-04-27] MEDS ORDERED: NITROFURANTOIN MACROBID 100 MG CAP PO ONE (19:55)
[2017-04-27 20:05] VITALS: BP 158/90; PULSE 82; RESP 16; TEMP 98.8; O2SAT 96
== END 2017-04-27 20:07 | disposition home or self-care (01) ==
LOC: EDUNIT#
DX: S01.512A Laceration without foreign body of oral cavity, initial encounter (principal); N39.0 Urinary tract infection, site not specified; I10 Essential (primary) hypertension; J45.909 Unspecified asthma, uncomplicated; Z86.73 Personal history of transient ischemic attack (TIA), and cerebral infarction without residual deficits; Z87.891 Personal history of nicotine dependence; X58.XXXA Exposure to other specified factors, initial encounter

== ENCOUNTER 2017-05-06 08:25 | Day surgery (SDC) | payer OTHER ==
[2017-05-06] MEDS ORDERED: LIDOCAINE 1% 300 MG/30 ML SDV ONE (09:00)
--- NOTE | 2017-05-06 22:27 | CPIP ---
[f rep st] INVASIVE CARDIAC PROCEDURE DATE OF PROCEDURE: 05/06/2017 PROCEDURE: This is a [employer] Reveal LINQ event recorder/loop recorder implantation, serial #[id number] . INDICATIONS/APPROPRIATE USE CRITERIA: The patient has recurrent stroke with relatively frequent PAC s, which can be a marker for underlying atrial fibrillation. We decided to place a LINQ IQ device t o help define whether or not the patient has atrial fibrillation as a cause for recurrent stroke, or if she has other significant tachy or birdie dysrhythmia. COMPLICATIONS: None. DECK STEWARD: Laurent Rivera. PROCEDURE IN DETAIL: After informed consent was obtained and n.p.o. status was confirmed, the regio n of the left parasternal region was cleaned, prepped, marked and draped in sterile fashion. A #15 blade was used to sharply incise the skin. A skin insertion tool was used to make a puncture wound through the dermis. This supplied tunneling device was then loaded with a Medtronic Reveal LI NQ device, and it was inserted in a 60 degree downward and positive angle. The tunneling device was removed and the skin was closed with 3 interrupted lisa, with good wound edge apposition and hemostasis documented. A sterile dressing was applied. FINAL IMPRESSION: Successful LINQ IQ insertion. /[id number]/MODL
== END 2017-05-06 11:34 | disposition home or self-care (01) ==
LOC: FCATH 08:25
PROVIDERS: ATTEND Internal Medicine Cardiovascular Disease
PROC: 0JH632Z Insertion of Monitoring Device into Chest Subcutaneous Tissue and Fascia, Percutaneous Approach (ICD-10-PCS; principal; 2017-05-06)
DX: I47.1 Supraventricular tachycardia (principal); E78.5 Hyperlipidemia, unspecified; I10 Essential (primary) hypertension; M06.9 Rheumatoid arthritis, unspecified; I77.9 Disorder of arteries and arterioles, unspecified; R91.1 Solitary pulmonary nodule; Z86.73 Personal history of transient ischemic attack (TIA), and cerebral infarction without residual deficits; Z79.01 Long term (current) use of anticoagulants
CPT/HCPCS: C1764

== ENCOUNTER 2017-05-23 21:37 | Emergency (ER) | payer OTHER ==
[2017-05-23 21:47] VITALS: O2SAT 95
--- NOTE | 2017-05-23 22:00 | EDPHY ---
H & P Stated Complaint: c/o hematoma of unk origin on LUE, some pain HPI/ROS: HPI CHIEF COMPLAINT: Hematoma left upper extremity HISTORY OF PRESENT ILLNESS: This patient is 76-year-old female, significant past medical history for CVA, on Eliquis and Plavix, history of rheumatoid arthritis with very thin skin, she presents emergency room with ecchymosis to left upper lateral arm. She noticed this today. Minimal pain. Denies direct trauma. She is unsure if she fell bumped into a wall or hit. Of note she has other areas of bruising in different stages of healing with different colors. She denies any chest pain or shortness of breath. Denies headache. Denies blood in her stool or urine. Patient became concerned about bruise to her left upper extremity as it is rather large in thought maybe she had a blood clot decided come to the emergency room for evaluation. Past Medical History: CVA, rheumatoid arthritis, hypertension Past Surgical History: No recent surgery Social History: Denies daily use drugs alcohol tobacco products Family History: Noncontributory ROS REVIEW OF SYSTEMS: A comprehensive 10 point review of systems is otherwise negative aside from elements mentioned in the history of present illness. Exam Constitutional appears well nontoxic triage nursing summary reviewed, vital signs reviewed, awake/alert. Noted to be hypertensive when she arrived here. Eyes normal conjunctivae and sclera, EOMI, PERRLA. HENT normal inspection, atraumatic, moist mucus membranes, no epistaxis, neck supple/ no meningismus, no raccoon eyes. Respiratory clear to auscultation bilaterally, normal breath sounds, no respiratory distress, no wheezing. Cardiovascular rate normal, regular rhythm, no murmur, no edema, distal pulses normal. Gastrointestinal soft, non-tender, no rebound, no guarding, normal bowel sounds, no distension, no pulsatile mass. Genitourinary no CVA tenderness. Musculoskeletal no midline vertebral tenderness, full range of motion, no calf swelling, no tenderness of extremities, no meningismus, good pulses, neurovascularly intact. Skin ecchymosis left upper extremity, 4 cm x 4 cm area of ecchymosis, also ecchymosis to right forearm, left back. Neurologic awake, alert and oriented x 3, AAOx3, moves all 4 extremities equally, motor intact, sensory intact, CN II-XII intact, normal cerebellar, normal vision, normal speech. Psychiatric normal mood/affect. Heme/Lymph/Immune no lymphadenopathy. Differential Diagnosis: Includes but is not limited to in a particular order ecchymosis from skin trauma on Eliquis and Plavix, thrombocytopenia, bleeding disorder, thin skin due to rheumatoid arthritis, and medications she takes. Medical Decision Making: Plan for this patient check blood work CBC and chemistry, coags. Placed on monitor to evaluate for high blood pressure. She has no chest pain or shortness of breath. Would like to see her blood pressure come down on its own. Re-evaluation: 2336: Blood work reviewed. CBC normal. Platelets normal. Blood pressures improved. She has no chest pain or shortness of breath. No headache. Plan for this patient I will allow her to go home. She understands monitor blood pressure closely over the next week. If she finds that she is having high blood pressure readings she should seek medical attention follow up with primary care doctor if she has chest pain severe headache, vomiting return to the emergency room. She understands. Additionally she has not had any further swelling or bleeding of her left upper extremity. She has a purple ecchymosis to her left upper extremity. Recommend cool compress. Source: Patient - Medical/Surgical History Hx Asthma: Yes Hx Chronic Respiratory Disease: Yes Hx Diabetes: No Hx Cardiac Disease: Yes Hx Renal Disease: No Hx Cirrhosis: No Hx Alcoholism: No Hx HIV/AIDS: No Hx Splenectomy or Spleen Trauma: No Other PMH: HTN, CAROTID STENOSIS, CVA ,TIA, Rheumatiod artheritis, hyperlipidemia, a fib, asthma. Patent foramina ovale. Stroke 12 15 at [facility] thought to be related to a disrupted carotid plaque. Atrial tachycardia - Social History Smoking Status: Former smoker Constitutional: Initial Vital Signs Temperature (C) 36.8 C 05/23/17 21:41 Heart Rate 84 05/23/17 21:41 Respiratory Rate 18 05/23/17 21:41 Blood Pressure 205/94 H 05/23/17 21:41 O2 Sat (%) 95 05/23/17 21:41 O2 Delivery Mode Room Air Allergies/Adverse Reactions: aspirin Allergy (Mild, Verified 05/23/17 21:47) morphine Allergy (Verified 05/23/17 21:47) Home Medications: Medication Instructions Recorded Acetaminophen [Tylenol ES 500 mg 1,000 mg PO Q2D PRN 03/21/17 (*)] Albuterol [Proventil Inhaler HFA 1 - 2 puffs IH Q4H PRN 03/21/17 (*)] Atorvastatin Calcium [Lipitor 40 40 mg PO DAILY@12 03/21/17 mg (*)] Cholecalciferol Vit D3 [Vitamin D3 10,000 units PO DAILY 03/21/17 (*)] Clopidogrel Bisulfate [Plavix (*)] 75 mg PO DAILY@12 03/21/17 Diltiazem HCl [Diltiazem 24Hr ER] 120 mg PO DAILY 03/21/17 Folic Acid [Folic Acid 1 MG (*)] 1 mg PO DAILY 03/21/17 Lisinopril [Zestril 10 mg (*)] 10 mg PO DAILY 03/21/17 Tofacitinib Citrate [Xeljanz] 5 mg PO BID 03/21/17 Medical Decision Making - Data Points Laboratory Results: Laboratory Results 05/23/17 20:15 05/23/17 20:15 05/23/17 05/23/17 05/23/17 20:15 20:15 20:15 WBC 6.49 10^3/uL 10^3/uL (3.80-9.50) RBC 4.39 10^6/uL 10^6/uL (4.18-5.33) Hgb 13.5 g/dL g/dL (12.6-16.3) Hct 38.6 % % (38.0-47.0) MCV 87.9 fL fL (81.5-99.8) MCH 30.8 pg pg (27.9-34.1) MCHC 35.0 g/dL g/dL (32.4-36.7) RDW 12.7 % % (11.5-15.2) Plt Count 369 10^3/uL 10^3/uL (150-400) MPV 9.9 fL fL (8.7-11.7) Neut % (Auto) 60.9 % % (39.3-74.2) Lymph % (Auto) 25.1 % % (15.0-45.0) [place] % (Auto) 8.6 % % (4.5-13.0) Eos % (Auto) 4.3 % % (0.6-7.6) Baso % (Auto) 0.5 % % (0.3-1.7) Nucleat RBC Rel Count 0.0 % % (0.0-0.2) Absolute Neuts (auto) 3.95 10^3/uL 10^3/uL (1.70-6.50) Absolute Lymphs (auto) 1.63 10^3/uL 10^3/uL (1.00-3.00) Absolute Monos (auto) 0.56 10^3/uL 10^3/uL (0.30-0.80) Absolute Eos (auto) 0.28 10^3/uL 10^3/uL (0.03-0.40) Absolute Basos (auto) 0.03 10^3/uL 10^3/uL (0.02-0.10) Absolute Nucleated RBC 0.00 10^3/uL 10^3/uL (0-0.01) Immature Gran % 0.6 % % (0.0-1.1) Immature Gran # 0.04 10^3/uL 10^3/uL (0.00-0.10) PT 14.6 SEC SEC (12.0-15.0) INR 1.15 (0.83-1.16) APTT 29.8 SEC SEC (23.0-38.0) Sodium 136 mEq/L mEq/L (134-144) Potassium 3.7 mEq/L mEq/L (3.5-5.2) Chloride 99 mEq/L mEq/L (97-110) Carbon Dioxide 22 mEq/l mEq/l (22-31) Anion Gap 15 mEq/L mEq/L (8-16) BUN 20 mg/dL mg/dL (7-23) Creatinine 0.7 mg/dL mg/dL (0.6-1.0) Estimated GFR > 60 Glucose 111 mg/dL H mg/dL (70-100) Calcium 10.4 mg/dL mg/dL (8.5-10.4) Departure - Departure Disposition: Home, Routine, Self-Care Clinical Impression: Ecchymosis Hypertension Qualifiers: Hypertension type: essential hypertension Qualified Code(s): I10 - Essential ( primary) hypertension Condition: Good Instructions: Hypertension (ED), Ecchymosis (ED) Additional Instructions: 1. I do recommend the watch blood pressure closely. 2. Please check your blood pressure twice a day. Record this. If your find you are getting very high readings seek medical attention. Referrals: Angie Elizalde MD [Primary Care Provider] - As per Instructions
[2017-05-23 22:33] LABS: % IMMATURE GRANULYOCYTES 0.6 % (0.0-1.1); ABSOLUTE IMMATURE GRANULOCYTES 0.04 10^3/uL (0.00-0.10); ADD DIFF? NO; ADD MORPH? NO; ADD SCAN? NO; ATYPICAL LYMPHOCYTE FLAG 20 (0-99); FRAGMENT RBC FLAG 0 (0-99); HEMATOCRIT 38.6 % (38.0-47.0); HEMOGLOBIN 13.5 g/dL (12.6-16.3); LEFT SHIFT FLG 0 (0-99); LIPEMIA HEMOLYSIS FLAG 90 (0-99); MEAN CELL HEMOGLOBIN 30.8 pg (27.9-34.1); MEAN CELL VOLUME 87.9 fL (81.5-99.8); MEAN PLATELET VOLUME 9.9 fL (8.7-11.7); PLATELET CLUMPS FLAG 0 (0-99); PLATELET COUNT 369 10^3/uL (150-400); RED BLOOD CELL COUNT 4.39 10^6/uL (4.18-5.33); RED CELL DISTRIBUTION WIDTH 12.7 % (11.5-15.2)
[2017-05-23 22:41] LABS: INR 1.15 (0.83-1.16); PROTIME(PATIENT) 14.6 SEC (12.0-15.0)
[2017-05-23 22:42] LABS: APTT 29.8 SEC (23.0-38.0)
[2017-05-23 22:44] LABS: ANION GAP 15 mEq/L (8-16); CALCIUM 10.4 mg/dL (8.5-10.4); CARBON DIOXIDE 22 mEq/l (22-31); CHLORIDE 99 mEq/L (97-110); CREATININE 0.7 mg/dL (0.6-1.0); GLOMERULAR FILTRATION RATE > 60; GLUCOSE 111 mg/dL (70-100); POTASSIUM 3.7 mEq/L (3.5-5.2); SODIUM 136 mEq/L (134-144)
[2017-05-23 23:44] VITALS: BP 178/99
[2017-05-24] VITALS: PULSE 62; RESP 16; TEMP 97.7
== END 2017-05-24 | disposition home or self-care (01) ==
DX: M79.81 Nontraumatic hematoma of soft tissue (principal); I10 Essential (primary) hypertension; J45.909 Unspecified asthma, uncomplicated; Z86.73 Personal history of transient ischemic attack (TIA), and cerebral infarction without residual deficits; Z87.891 Personal history of nicotine dependence

== ENCOUNTER 2017-10-22 12:56 | Emergency (ER) | payer OTHER ==
[2017-10-22 13:37] VITALS: TEMP 97.2
--- NOTE | 2017-10-22 13:44 | EDPHY ---
H & P Stated Complaint: low sodium yesterday with continued nausea Time Seen by Provider: 10/22/17 13:44 HPI/ROS: CHIEF COMPLAINT: Intermittent nausea, hyponatremia HISTORY OF PRESENT ILLNESS: The patient presents the ED with a week history of intermittent nausea. The patient saw her primary care provider yesterday who checked outpatient labs and documented a sodium of 129. The patient had similar episode of weakness and malaise earlier in February with an episode of hyponatremia. The patient reports that she was started on irbesttian and spironolactone 3 weeks ago. She denies significant weight gain. She reports she has had marked improvement of her blood pressure. The patient is anticoagulated with Eliquis for atrial fibrillation. The patient also takes Bystolic. Additionally, the patient has a history of rheumatoid arthritis. She denies any fever, cough or congestion. She denies fall or trauma. She denies any acute headache. REVIEW OF SYSTEMS: A comprehensive 10 point review of systems is otherwise negative aside from elements mentioned in the history of present illness. Source: Patient Exam Limitations: No limitations - Personal History Current Tetanus Diphtheria and Acellular Pertussis (TDAP): No - Medical/Surgical History Hx Asthma: Yes Hx Chronic Respiratory Disease: Yes Hx Diabetes: No Hx Cardiac Disease: Yes Hx Renal Disease: No Hx Cirrhosis: No Hx Alcoholism: No Hx HIV/AIDS: No Hx Splenectomy or Spleen Trauma: No Other PMH: HTN, CAROTID STENOSIS, CVA ,TIA, Rheumatiod artheritis, hyperlipidemia, a fib, asthma. Patent foramina ovale. Stroke 12 15 at [facility] thought to be related to a disrupted carotid plaque. Atrial tachycardia - Social History Smoking Status: Former smoker - Physical Exam Exam: General Appearance: Alert, no distress Eyes: Pupils equal and round no pallor or injection ENT, Mouth: Mucous membranes moist Respiratory: There are no retractions, lungs are clear to auscultation Cardiovascular: Regular rate and rhythm Gastrointestinal: Abdomen is soft and nontender, no masses, bowel sounds normal Neurological: 5/5 strength all 4 extremities Skin: Warm and dry, no rashes Musculoskeletal: Neck is supple nontender Extremities: Extremity changes consistent with rheumatoid arthritis Psychiatric: Patient is oriented X 3, there is no agitation Constitutional: Initial Vital Signs Temperature (C) 36.2 C 10/22/17 13:33 Heart Rate 62 10/22/17 13:33 Respiratory Rate 18 10/22/17 13:33 Blood Pressure 147/71 H 10/22/17 13:33 O2 Sat (%) 97 10/22/17 13:33 O2 Delivery Mode Room Air Allergies/Adverse Reactions: aspirin Allergy (Mild, Verified 05/23/17 21:47) morphine Allergy (Verified 05/23/17 21:47) Home Medications: Medication Instructions Recorded Albuterol [Proventil Inhaler HFA 1 - 2 puffs IH Q4H PRN 03/21/17 (*)] Atorvastatin Calcium [Lipitor 40 40 mg PO DAILY@12 03/21/17 mg (*)] Clopidogrel Bisulfate [Plavix (*)] 75 mg PO DAILY@12 03/21/17 Diltiazem HCl [Diltiazem 24Hr ER] 120 mg PO DAILY 03/21/17 Tofacitinib Citrate [Xeljanz] 5 mg PO BID 03/21/17 Bystolic 10/22/17 Eliquis 10/22/17 Irbesartan 10/22/17 Spironolactone 10/22/17 Medical Decision Making ED Course/Re-evaluation: I reviewed the patient's past medical records including her outpatient labs from yesterday. I reviewed her history and physical and discharge summary from February of this year. The patient had an IV established. 1 L of normal saline was ordered. The patient's sodium was recheck after IV fluid rehydration and is now normal at 134. She is feeling much better at this point time. She has no evidence of hyperkalemia. She has been advised to increase her fluid and solute intake. The patient will follow up with her regular certified court/medical interpreter for a recheck in the coming weeks. Her primary care provider will recheck her sodium. The patient was re-evaluated by myself at 6:00 p.m.. She is ambulatory at her nausea has entirely resolved. Her electrolytes have corrected. Differential Diagnosis: Differential diagnosis considered includes hyponatremia, dehydration, hyperkalemia, medication side effect - Data Points Laboratory Results: Laboratory Results 10/22/17 14:05 10/22/17 14:05 10/22/17 10/22/17 10/22/17 17:22 14:05 14:05 WBC 7.59 10^3/uL 10^3/uL (3.80-9.50) RBC 4.62 10^6/uL 10^6/uL (4.18-5.33) Hgb 14.4 g/dL g/dL (12.6-16.3) POC Hgb 12.9 gm/dL gm/dL (12.6-16.3) Hct 39.6 % % (38.0-47.0) POC Hct 38 % % (38-47) MCV 85.7 fL fL (81.5-99.8) MCH 31.2 pg pg (27.9-34.1) MCHC 36.4 g/dL g/dL (32.4-36.7) RDW 12.7 % % (11.5-15.2) Plt Count 391 10^3/uL 10^3/uL (150-400) MPV 9.3 fL fL (8.7-11.7) Neut % (Auto) 74.3 % H % (39.3-74.2) Lymph % (Auto) 14.4 % L % (15.0-45.0) [place] % (Auto) 9.0 % % (4.5-13.0) Eos % (Auto) 1.2 % % (0.6-7.6) Baso % (Auto) 0.3 % % (0.3-1.7) Nucleat RBC Rel Count 0.0 % % (0.0-0.2) Absolute Neuts (auto) 5.65 10^3/uL 10^3/uL (1.70-6.50) Absolute Lymphs (auto) 1.09 10^3/uL 10^3/uL (1.00-3.00) Absolute Monos (auto) 0.68 10^3/uL 10^3/uL (0.30-0.80) Absolute Eos (auto) 0.09 10^3/uL 10^3/uL (0.03-0.40) Absolute Basos (auto) 0.02 10^3/uL 10^3/uL (0.02-0.10) Absolute Nucleated RBC 0.00 10^3/uL 10^3/uL (0-0.01) Immature Gran % 0.8 % % (0.0-1.1) Immature Gran # 0.06 10^3/uL 10^3/uL (0.00-0.10) POC Sodium 134 mEq/L mEq/L (134-144) Sodium 128 mEq/L L mEq/L (134-144) POC Potassium 3.9 mEq/L mEq/L (3.3-5.0) Potassium 4.4 mEq/L mEq/L (3.5-5.2) POC Chloride 99 mEq/L mEq/L (97-110) Chloride 95 mEq/L L mEq/L (97-110) Carbon Dioxide 21 mEq/l L mEq/l (22-31) Anion Gap 12 mEq/L mEq/L (8-16) POC BUN 14 mg/dL mg/dL (7-23) BUN 17 mg/dL mg/dL (7-23) Creatinine 0.8 mg/dL mg/dL (0.6-1.0) POC Creatinine 0.6 mg/dL mg/dL (0.6-1.0) Estimated GFR > 60 Glucose 108 mg/dL H mg/dL (70-100) POC Glucose 93 mg/dL mg/dL (70-100) Calcium 10.2 mg/dL mg/dL (8.5-10.4) Medications Given: Discontinued Medications Sodium Chloride (Ns) 1,000 mls @ 0 mls/hr IV EDNOW ONE; Wide Open PRN Reason: Protocol Stop: 10/22/17 13:54 Last Admin: 10/22/17 14:13 Dose: 1,000 mls Sodium Chloride (Ns) 1,000 mls @ 0 mls/hr IV EDNOW ONE; Wide Open PRN Reason: Protocol Stop: 10/22/17 15:49 Last Admin: 10/22/17 16:04 Dose: 1,000 mls Point of Care Test Results: 10/22/17 17:22 POC Sodium 134 POC Potassium 3.9 POC Chloride 99 POC BUN 14 POC Creatinine 0.6 POC Glucose 93 Departure - Departure Disposition: Home, Routine, Self-Care Clinical Impression: Dehydration, Hyponatremia Condition: Good Instructions: Hyponatremia (ED) Additional Instructions: 1. Please try and increase your fluid intake. Be sure that you are getting some electrolyte containing fluids. 2. Please have your primary care provider recheck your sodium level in 2 weeks. 3. Return to the ED for markedly worsening symptoms or other concerns.
[2017-10-22] MEDS ORDERED: NS 1,000 ML IV ONE ×2 (13:53→15:48)
[2017-10-22 14:10] LABS: PLATELET COUNT 391 10^3/uL (150-400)
[2017-10-22 18:26] VITALS: BP 159/71; PULSE 59; RESP 16; O2SAT 93
== END 2017-10-22 18:23 | disposition home or self-care (01) ==
DX: E86.0 Dehydration (principal); E87.1 Hypo-osmolality and hyponatremia; E86.9 Volume depletion, unspecified; I10 Essential (primary) hypertension; J45.909 Unspecified asthma, uncomplicated; Z86.73 Personal history of transient ischemic attack (TIA), and cerebral infarction without residual deficits; Z87.891 Personal history of nicotine dependence; Z79.01 Long term (current) use of anticoagulants
CPT/HCPCS: 82947-QW

== ENCOUNTER 2017-10-26 09:45 | Emergency (ER) | payer OTHER ==
[2017-10-26 09:58] VITALS: RESP 16
[2017-10-26 10:32] LABS: PLATELET COUNT 425 10^3/uL (150-400)
[2017-10-26] MEDS ORDERED: NS 500 ML IV ONE (10:41)
--- NOTE | 2017-10-26 13:33 | EDPHY ---
H & P Stated Complaint: UPSET STOMACH, CONCERNED FOR LOW SODIUM Time Seen by Provider: 10/26/17 09:56 HPI/ROS: Chief complaint: Weakness, malaise, concern for low sodium History of present illness: This is a 77-year-old female who presents to the emergency department for weakness, malaise and concern for low sodium. She has felt this way for the last few days. She states on she had a prime rib dinner. Shortly thereafter she had multiple episodes of diarrhea. That has subsequently stopped. However, since then she has felt unwell. She does have an associated upset stomach with some nausea but no vomiting. This has been a long ongoing issue for her. She denies other associated signs or symptoms including no fevers, no chest pain, no shortness of breath, no urinary symptoms. She had similar symptoms just before and was noted to have low sodium, she was rehydrated and states she felt much better. Review of systems: A 10 point review of systems was obtained and other than described above was negative - Personal History Current Tetanus/Diphtheria Vaccine: Yes - Medical/Surgical History Hx Asthma: Yes Hx Chronic Respiratory Disease: Yes Hx Diabetes: No Hx Cardiac Disease: Yes Hx Renal Disease: No Hx Cirrhosis: No Hx Alcoholism: No Hx HIV/AIDS: No Hx Splenectomy or Spleen Trauma: No Other PMH: HTN, CAROTID STENOSIS, CVA ,TIA, Rheumatiod artheritis, hyperlipidemia, a fib, asthma. Patent foramina ovale. Stroke 12 15 at [facility] thought to be related to a disrupted carotid plaque. Atrial tachycardia - Social History Smoking Status: Former smoker - Physical Exam Exam: General Appearance: Alert, nontoxic. Eyes: Pupils equal and round no pallor or injection. ENT, Mouth: Mucous membranes moist. Respiratory: There are no retractions, lungs are clear to auscultation. Cardiovascular: Regular rate and rhythm. Gastrointestinal: Abdomen is soft and non tender, no masses, bowel sounds normal. Neurological: Alert and oriented x4. Cranial nerves 2-12 grossly intact. Strength and sensation intact and symmetrical. Skin: Warm and dry, no rashes. Musculoskeletal: Neck is supple non tender. Extremities are symmetrical, full range of motion. Psychiatric: Patient is oriented X 3, there is no agitation. Constitutional: Initial Vital Signs Temperature (C) 36.8 C 10/26/17 09:56 Heart Rate 74 10/26/17 09:56 Respiratory Rate 16 10/26/17 09:56 Blood Pressure 174/114 H 10/26/17 09:56 O2 Sat (%) 94 10/26/17 09:56 O2 Delivery Mode Room Air Allergies/Adverse Reactions: aspirin Allergy (Mild, Verified 05/23/17 21:47) morphine Allergy (Verified 05/23/17 21:47) Home Medications: Medication Instructions Recorded Albuterol [Proventil Inhaler HFA 1 - 2 puffs IH Q4H PRN 03/21/17 (*)] Atorvastatin Calcium [Lipitor 40 40 mg PO DAILY@12 03/21/17 mg (*)] Clopidogrel Bisulfate [Plavix (*)] 75 mg PO DAILY@12 03/21/17 Diltiazem HCl [Diltiazem 24Hr ER] 120 mg PO DAILY 03/21/17 Tofacitinib Citrate [Xeljanz] 5 mg PO BID 03/21/17 Bystolic 10/22/17 Eliquis 10/22/17 Irbesartan 10/22/17 Spironolactone 10/22/17 Medical Decision Making ED Course/Re-evaluation: Patient is discussed with my secondary supervising physician Dr. Alistair Perez. Patient presents to the emergency department for evaluation of generalized malaise and weakness. Blood studies do show her to be hyponatremic at 127. She is gently hydrated in the emergency room and recheck shows her to be at 131. She states she is feeling significantly better. She is comfortable being discharged home. Home care is discussed. I have discussed the importance of proper oral intake as she states she is barely eating or drinking anything lately. I have discussed the use of supplements such as Ensure. She is asked to follow up with her primary care doctor for recheck. Strict return precautions are given. Patient voiced understanding and agreement with plan. Differential Diagnosis: Included but not limited to electrolyte disturbances, anemia, infectious pathology - Data Points Laboratory Results: Laboratory Results 10/26/17 10:06 10/26/17 10:06 10/26/17 10/26/17 10/26/17 12:53 10:06 10:06 WBC 7.20 10^3/uL 10^3/uL (3.80-9.50) RBC 4.60 10^6/uL 10^6/uL (4.18-5.33) Hgb 14.2 g/dL g/dL (12.6-16.3) POC Hgb 13.6 gm/dL gm/dL (12.6-16.3) Hct 38.5 % % (38.0-47.0) POC Hct 40 % % (38-47) MCV 83.7 fL fL (81.5-99.8) MCH 30.9 pg pg (27.9-34.1) MCHC 36.9 g/dL H g/dL (32.4-36.7) RDW 12.6 % % (11.5-15.2) Plt Count 425 10^3/uL H 10^3/uL (150-400) MPV 9.4 fL fL (8.7-11.7) Neut % (Auto) 72.2 % % (39.3-74.2) Lymph % (Auto) 16.7 % % (15.0-45.0) [place] % (Auto) 8.8 % % (4.5-13.0) Eos % (Auto) 1.1 % % (0.6-7.6) Baso % (Auto) 0.4 % % (0.3-1.7) Nucleat RBC Rel Count 0.0 % % (0.0-0.2) Absolute Neuts (auto) 5.20 10^3/uL 10^3/uL (1.70-6.50) Absolute Lymphs (auto) 1.20 10^3/uL 10^3/uL (1.00-3.00) Absolute Monos (auto) 0.63 10^3/uL 10^3/uL (0.30-0.80) Absolute Eos (auto) 0.08 10^3/uL 10^3/uL (0.03-0.40) Absolute Basos (auto) 0.03 10^3/uL 10^3/uL (0.02-0.10) Absolute Nucleated RBC 0.00 10^3/uL 10^3/uL (0-0.01) Immature Gran % 0.8 % % (0.0-1.1) Immature Gran # 0.06 10^3/uL 10^3/uL (0.00-0.10) POC Sodium 131 mEq/L L mEq/L (134-144) Sodium 127 mEq/L L mEq/L (134-144) POC Potassium 3.8 mEq/L mEq/L (3.3-5.0) Potassium 4.2 mEq/L mEq/L (3.5-5.2) POC Chloride 94 mEq/L L mEq/L (97-110) Chloride 92 mEq/L L mEq/L (97-110) Carbon Dioxide 22 mEq/l mEq/l (22-31) Anion Gap 13 mEq/L mEq/L (8-16) POC BUN 9 mg/dL mg/dL (7-23) BUN 12 mg/dL mg/dL (7-23) Creatinine 0.7 mg/dL mg/dL (0.6-1.0) POC Creatinine 0.6 mg/dL mg/dL (0.6-1.0) Estimated GFR > 60 Glucose 129 mg/dL H mg/dL (70-100) POC Glucose 104 mg/dL H mg/dL (70-100) Calcium 10.4 mg/dL mg/dL (8.5-10.4) Total Bilirubin 0.7 mg/dL mg/dL (0.1-1.4) Conjugated Bilirubin 0.3 mg/dL mg/dL (0.0-0.5) Unconjugated Bilirubin 0.4 mg/dL mg/dL (0.0-1.1) AST 31 IU/L IU/L (14-46) ALT 38 IU/L IU/L (9-52) Alkaline Phosphatase 93 IU/L IU/L (38-126) Total Protein 7.2 g/dL g/dL (6.3-8.2) Albumin 4.6 g/dL g/dL (3.5-5.0) Lipase 180 IU/L IU/L (23-300) Medications Given: Discontinued Medications Sodium Chloride (Ns) 500 mls @ 1,000 mls/hr IV EDNOW ONE PRN Reason: Protocol Stop: 10/26/17 11:10 Last Admin: 10/26/17 10:47 Dose: 500 mls Point of Care Test Results: 10/26/17 12:53 POC Sodium 131 L POC Potassium 3.8 POC Chloride 94 L POC BUN 9 POC Creatinine 0.6 POC Glucose 104 H Departure - Departure Disposition: Home, Routine, Self-Care Clinical Impression: Hyponatremia Condition: Good Instructions: Hyponatremia (ED) Additional Instructions: Follow-up with your primary care doctor this week for recheck If symptoms worsen or new symptoms develop return to the emergency room for recheck Referrals: Angie Elizalde MD [Primary Care Provider] - As per Instructions
[2017-10-26 13:54] VITALS: BP 156/70; PULSE 59; TEMP 97.9; O2SAT 96
== END 2017-10-26 13:54 | disposition home or self-care (01) ==
DX: E87.1 Hypo-osmolality and hyponatremia (principal); E86.9 Volume depletion, unspecified; J45.909 Unspecified asthma, uncomplicated; I10 Essential (primary) hypertension; Z79.01 Long term (current) use of anticoagulants; Z86.73 Personal history of transient ischemic attack (TIA), and cerebral infarction without residual deficits; Z87.891 Personal history of nicotine dependence
CPT/HCPCS: 82947-QW

== ENCOUNTER 2017-10-30 19:10 | Emergency (ER) | payer OTHER ==
--- NOTE | 2017-10-30 19:31 | EDPHY ---
H & P Stated Complaint: FEEL DEHYDRATED, NAUSEA, DIZZY, WEAKNESS, HAS HAD LOW SODIUM HPI/ROS: CHIEF COMPLAINT: Malaise, nausea, dizziness, weakness, concerned about low sodium HISTORY OF PRESENT ILLNESS: The patient is an anticoagulated 77 y/o female with a history of CVA and TIA complaining of malaise, nausea, weakness, and dizziness. In February 2017, 7 months ago, she was admitted for weakness and was hyponatremic at 127. She was seen in the ED on 10/22/17 and 10/26/17 with similar complaintss. 6 days ago she started taking only half of her Irbesartan prescription.Prior to arriving in the ED her legs became weak, she felt nauseated, and her face felt flushed. These symptoms are similar to what she experiences when her sodium drops. She believes this is due to her diuretics. 6 days ago her dose of irbesartan was cut in half because of decreasing sodium. Dr. Rivera's office, took her off of Spironolactone today. Had diarrhea on 10/23/17, but this stopped the next day. She has had normal bowel movements since. Denies recent headache, confusion, fall, weakness, chest pain, abdominal pain, or other pertinent symptoms. Prior medical records reviewed including ED visit with Dr. Perez on 10/26/17 and History and Physical from Dr. Collins on 03/21/17. REVIEW OF SYSTEMS: A ten point review of systems was performed and is negative with the exception of the items mentioned in the HPI. Past medical history: CVA TIA (April 2014) Rheumatoid arthritis Hypertension Atrial fibrillation Asthma Past surgical history: Hysterectomy Bilateral knee surgery Back surgery Family history: Denies Social history: Lives in [place] Retired Former smoker Alcohol use General Appearance: Alert. Vital signs reviewed. Blood pressure recorded is 140/126 at triage. Eyes: Pupils equal and round, no conjunctival injection, no discharge. Anicteric. ENT, Mouth: Mucous membranes are moist, no oropharyngeal erythema or edema. Neck: No lymphadenopathy, supple. Respiratory: Lungs are clear to auscultation; no wheezes, rales, or rhonchi. Cardiovascular: Regular rate and rhythm; no murmur, rub, or gallop. Gastrointestinal: Abdomen is soft and nontender, no masses or organomegaly, bowel sounds normal. Skin: Warm and dry, no rashes on exposed skin, normal color. Back: Nontender to palpation over the thoracolumbar spine. No CVAT. 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 No lower extremity edema, no calf tenderness or swelling. Neurological: Alert and oriented. Moving all four extremities easily and equally. Cranial nerves II through XII are examined and are intact (visual acuity not tested). Strength is 5 over 5 bilaterally with testing of all major motor groups. Sensation is intact to light touch over all 4 extremities. Speech is clear and fluent. Psychiatric: Normal affect. - Personal History Current Tetanus/Diphtheria Vaccine: Yes - Medical/Surgical History Hx Asthma: Yes Hx Chronic Respiratory Disease: Yes Hx Diabetes: No Hx Cardiac Disease: Yes Hx Renal Disease: No Hx Cirrhosis: No Hx Alcoholism: No Hx HIV/AIDS: No Hx Splenectomy or Spleen Trauma: No Other PMH: HTN, CAROTID STENOSIS, CVA ,TIA, Rheumatiod artheritis, hyperlipidemia, a fib, asthma. Patent foramina ovale. Stroke 12 15 at [facility] thought to be related to a disrupted carotid plaque. Atrial tachycardia - Social History Smoking Status: Former smoker Constitutional: Initial Vital Signs Temperature (C) 37.0 C 10/30/17 19:16 Heart Rate 64 10/30/17 19:16 Respiratory Rate 18 10/30/17 19:16 Blood Pressure 140/126 H 10/30/17 19:16 O2 Sat (%) 95 10/30/17 19:16 O2 Delivery Mode Room Air Allergies/Adverse Reactions: aspirin Allergy (Mild, Verified 10/30/17 19:20) morphine Allergy (Verified 10/30/17 19:20) Home Medications: Medication Instructions Recorded Albuterol [Proventil Inhaler HFA 1 - 2 puffs IH Q4H PRN 03/21/17 (*)] Atorvastatin Calcium [Lipitor 40 40 mg PO DAILY@03/21/17 mg (*)] Clopidogrel Bisulfate [Plavix (*)] 75 mg PO DAILY@03/21/17 Diltiazem HCl [Diltiazem 24Hr ER] 120 mg PO DAILY 03/21/17 Tofacitinib Citrate [Xeljanz] 5 mg PO BID 03/21/17 Bystolic 10/22/17 Eliquis 10/22/17 Irbesartan 10/22/17 Spironolactone 10/22/17 Medical Decision Making ED Course/Re-evaluation: The patient is an anticoagulated 77 y/o female wit chavez history of CVA and TIA complaining of malaise, nausea, weakness, and dizziness. She has a history of hyponatremia with similar symptoms. On exam she has bilateral rheumatoid deformities to her digits. She in the course of her stay in the emergency department she received 1L IV NS, and few slowly, and 4mg IV Zofran administered. 1999: Sodium: 124. Sodium October 04 was 141 Sodium on October 21 was 129 Sodium on October 22 was 128 Sodium on October 26 is 127 Clearly there has been a steady decline in her serum sodium. I suspect that this is secondary to her medications, which are being adjusted because of this problem. I also note that she continues to present in the emergency department complaining of dehydration and receiving IV fluids. It is not clear how much she is drinking at home. I do not think that she is dehydrated. When she was seen in the emergency department on the she received IV fluids and had a repeat sodium that measured 131 by i-STAT. 2129: Reassessed patient and discussed laboratory results. She would like to go home, even though she is hyponatremic, with decreasing sodium levels over her recent visits. I have cautioned her that if she does not feel normal in any way (confusion, weakness, any new or concerning symptoms), she needs to return to the ED immediately. She was offered hospitalization but feels completely normal and would like to return home. Her son is here with her and he will check on her tomorrow. She has follow-up with Dr. Rivera day after tomorrow. Strict return precautions provided. - Data Points Laboratory Results: Laboratory Results 10/30/17 19:40 10/30/17 19:40 Medications Given: Discontinued Medications Sodium Chloride (Ns) 1,000 mls @ 0 mls/hr IV ONCE ONE PRN Reason: Wide Open Stop: 10/30/17 20:06 Last Admin: 10/30/17 20:06 Dose: 1,000 mls Ondansetron HCl (Zofran) 4 mg IVP EDNOW ONE Stop: 10/30/17 20:06 Last Admin: 10/30/17 20:06 Dose: 4 mg Departure - Departure Disposition: Home, Routine, Self-Care Clinical Impression: Hyponatremia Condition: Good Instructions: Hyponatremia (ED) Additional Instructions: Follow up with to November 01 as planned. Call his office 1st thing in the morning. Return to the Emergency Department for severe weakness, headache, vomiting, vision changes, confusion, fever or other concerns. Referrals: Angie Elizalde MD [Primary Care Provider] - As per Instructions Laurent Rivera MD [Medical Doctor] - As per Instructions Report Scribed for: Phyllis Hodge Report Scribed by: Beatriz Paniagua Date of Report: 10/30/17 Time of Report: 19:35 Physician Review and Approval Statement: 10/30/17 19:31 Portions of this note were transcribed by the medical assistant supervisor. I, Dr. Phyllis Hodge, personally performed the history, physical exam, and medical decision- making; and confirmed the accuracy of the information in the transcribed note.
[2017-10-30] MEDS ORDERED: ONDANSETRON 4 MG/2 ML VIAL ONE (20:05)
[2017-10-30] MEDS ORDERED: NS 1,000 ML IV ONE (20:05)
[2017-10-30] MEDS ORDERED: ONDANSETRON 4 MG/2 ML VIAL IVP ONE (20:05)
[2017-10-30 20:11] LABS: PLATELET COUNT 397 10^3/uL (150-400)
[2017-10-30 22:04] VITALS: BP 148/94; PULSE 60; RESP 16; TEMP 97.9; O2SAT 94
== END 2017-10-30 22:03 | disposition home or self-care (01) ==
DX: E87.1 Hypo-osmolality and hyponatremia (principal); I10 Essential (primary) hypertension; J45.909 Unspecified asthma, uncomplicated; Z86.73 Personal history of transient ischemic attack (TIA), and cerebral infarction without residual deficits; Z87.891 Personal history of nicotine dependence
CPT/HCPCS: 96361; 96374; 99284; J2405

== ENCOUNTER 2018-01-24 10:17 | Emergency (ER) | payer OTHER ==
--- NOTE | 2018-01-24 10:39 | CPEKG ---
Heart Rate: 68 RR Interval: 882 P-R Interval: 216 QRSD Interval: 82 QT Interval: 452 QTC Interval: 481 P [place]: 72 QRS [place]: -11 T Wave [place]: 48 EKG Severity - ABNORMAL ECG - EKG Impression: SINUS RHYTHM EKG Impression: LEFT VENTRICULAR HYPERTROPHY EKG Impression: NONSPECIFIC ST_T WAVE ABNORMAILITES Electronically Signed By: Laurent Rivera 24-Jan-2018 13:46:15
[2018-01-24 11:16] LABS: PLATELET COUNT 340 10^3/uL (150-400)
--- NOTE | 2018-01-24 11:52 | EDPHY ---
H & P Time Seen by Provider: 01/24/18 11:50 HPI/ROS: Chief complaint. High blood pressure comma numbness HPI. Patient is 77-year-old female presents to the emergency department with left neck numbness. She had a carotid endarterectomy 2 and half years ago on the left side. She has had off and on numbness to the left neck over the carotid endarterectomy site for the last 2 weeks. Now more continuous the past 2 days. Her blood pressure is also been elevated. She has no chest pain however, shortness of breath, abdominal pain. Denies change in her vision. No fever. No headache. No focal weakness or paresthesias. She is on blood thinners but no recent head injury. She also takes by systolic for blood pressure. ROS Constitutional. no fever/chills, no weakness Eyes. no problems with vision ENT. no sore throat, no nasal drainage Cardiovascular. no chest pain Respiratory. no shortness of breath, no cough Abdominal. no abdominal pain, no nausea/vomiting, no diarrhea . no problems urinating MS. no calf pain/swelling, no neck/back pain, no joint pain Skin. no rash Lymph. no swollen glands Neuro. Paresthesia left neck Past Medical/Surgical History: Hypertension, carotid stenosis with endarterectomy, CVA, TIA, dyslipidemia, rheumatoid arthritis, atrial fibrillation, asthma Social History: Single, nonsmoker, no alcohol Smoking Status: Former smoker Physical Exam: General Appearance: Alert well-developed female mild distress vital signs are significant for initial blood pressure 213/90. Repeat blood pressure 172/103 Eyes: Pupils equal and round no pallor or injection. ENT, Mouth: Mucous membranes are moist. Respiratory: There are no retractions, lungs are clear to auscultation. Cardiovascular: Regular rate and rhythm. Gastrointestinal: Abdomen is soft and nontender, no masses, bowel sounds normal. Neurological: Awake and alert, sensory and motor exams grossly normal. Subjective decreased sensation over the carotid endarterectomy scar. Otherwise cranial nerves are intact. Speech is normal. No pronator drift. Finger-to- nose intact bilateral Skin: Warm and dry, no rashes. Musculoskeletal: Neck is supple nontender. Extremities symmetrical, full range of motion. Psychiatric: Patient is oriented X 3, there is no agitation. Constitutional: Initial Vital Signs Temperature (C) 36.7 C 03/27/18 10:25 Heart Rate 73 01/24/18 10:25 Respiratory Rate 16 01/24/18 10:25 Blood Pressure 213/90 H 01/24/18 10:25 O2 Sat (%) 94 01/24/18 10:25 O2 Delivery Mode Room Air Allergies/Adverse Reactions: aspirin Allergy (Mild, Verified 01/24/18 10:22) morphine Allergy (Verified 01/24/18 10:22) Home Medications: Medication Instructions Recorded Albuterol [Proventil Inhaler HFA 1 - 2 puffs IH Q4H PRN 03/21/17 (*)] Atorvastatin Calcium [Lipitor 40 40 mg PO DAILY@12 03/21/17 mg (*)] Clopidogrel Bisulfate [Plavix (*)] 75 mg PO DAILY@12 03/21/17 Diltiazem HCl [Diltiazem 24Hr ER] 120 mg PO DAILY 03/21/17 Tofacitinib Citrate [Xeljanz] 5 mg PO BID 03/21/17 Bystolic 10/22/17 Eliquis 10/22/17 Irbesartan 10/22/17 Lasix 01/24/18 Medical Decision Making - Diagnostics EKG Interpretation: EKG interpreted by me shows normal sinus rhythm with normal interval. Left axis deviation. LVH by voltage. No significant ST elevation or depression. No arrhythmia. The rate is 68 Imaging Results: Imaging Impressions Head CT 01/24/18 12:07 Impression: 1. Elderly brain with atrophy and probable white matter small vessel disease. 2. Negative for hemorrhage. 3. No acute cortical ischemia with minimal old focal left parietal cortical infarct noted. A preliminary report was called to the emergency Department. Carotid Doppler Study 01/24/18 12:08 Impression: No evidence of flow-limiting carotid stenosis. Measurement of carotid stenosis is based on velocity parameters that correlate the residual internal carotid diameter with [place] Symptomatic Carotid Endarterectomy Trial (NASCET) based stenosis levels. Results called and discussed with HELENE SOLIS the on 01/24/2018 at 13:54 Procedures: IV normal saline, monitor ED Course/Re-evaluation: Re-evaluation at 1:30 p.m.. Patient is stable. Her blood pressure is 162/73. She is without complaints She and I discussed imaging and lab results so far. We are awaiting ultrasound results of her carotid artery ultrasound Re-evaluation again at 2:10 p.m.. Patient is stable. The patient, her son, and I discussed imaging and lab results. We discussed treatment plan including criteria for return importance of follow-up and further evaluation. They expressed understanding and agreement Differential Diagnosis: I do not believe this represents CVA. She has very localized area of altered sensation. Otherwise neurologic exam is normal. Her head CT is nonacute despite being on blood thinners. No evidence for intracranial bleeding. No evidence for acute LA or electrolyte abnormalities or urinary tract infection. Blood pressure was elevated but has now been controlled without medication - Data Points Laboratory Results: Laboratory Results 01/24/18 11:00 01/24/18 11:10 01/24/18 01/24/18 01/24/18 12:10 11:10 11:00 WBC RBC Hgb Hct MCV MCH MCHC RDW Plt Count MPV Neut % (Auto) Lymph % (Auto) Worth % (Auto) Eos % (Auto) Baso % (Auto) Nucleat RBC Rel Count Absolute Neuts (auto) Absolute Lymphs (auto) Absolute Monos (auto) Absolute Eos (auto) Absolute Basos (auto) Absolute Nucleated RBC Immature Gran % Immature Gran # PT 15.3 SEC H SEC (12.0-15.0) INR 1.19 H (0.83-1.16) Turbidity Cancelled Sodium Cancelled Potassium Cancelled Chloride Cancelled Carbon Dioxide Cancelled Anion Gap Cancelled BUN Cancelled Creatinine Cancelled Estimated GFR Cancelled Glucose Cancelled Calcium Cancelled Troponin I < 0.012 ng/mL ng/mL (0.000-0.034) Specimen Hemolysis Cancelled Urine Color COLORLESS Urine Appearance CLEAR Urine pH 7.0 (5.0-7.5) Ur Specific Anna 1.006 (1.002-1.030) Urine Protein NEGATIVE (NEGATIVE) Urine Ketones NEGATIVE (NEGATIVE) Urine Blood 2+ H (NEGATIVE) Urine Nitrate NEGATIVE (NEGATIVE) Urine Bilirubin NEGATIVE (NEGATIVE) Urine Urobilinogen NEGATIVE EU EU (0.2-1.0) Ur Leukocyte Esterase NEGATIVE (NEGATIVE) Urine RBC 3-5 /hpf H /hpf (0-3) Urine WBC NONE SEEN /hpf /hpf (0-3) Ur Epithelial Cells NONE SEEN /lpf /lpf (NONE-1+) Urine Mucus TRACE /lpf /lpf (NONE-1+) Urine Glucose NEGATIVE (NEGATIVE) 01/24/18 01/24/18 11:00 11:00 WBC 7.99 10^3/uL 10^3/uL (3.80-9.50) RBC 4.20 10^6/uL 10^6/uL (4.18-5.33) Hgb 12.9 g/dL g/dL (12.6-16.3) Hct 38.0 % % (38.0-47.0) MCV 90.5 fL fL (81.5-99.8) MCH 30.7 pg pg (27.9-34.1) MCHC 33.9 g/dL g/dL (32.4-36.7) RDW 12.9 % % (11.5-15.2) Plt Count 340 10^3/uL 10^3/uL (150-400) MPV 9.6 fL fL (8.7-11.7) Neut % (Auto) 80.6 % H % (39.3-74.2) Lymph % (Auto) 10.5 % L % (15.0-45.0) Worth % (Auto) 6.8 % % (4.5-13.0) Eos % (Auto) 1.3 % % (0.6-7.6) Baso % (Auto) 0.3 % % (0.3-1.7) Nucleat RBC Rel Count 0.0 % % (0.0-0.2) Absolute Neuts (auto) 6.45 10^3/uL 10^3/uL (1.70-6.50) Absolute Lymphs (auto) 0.84 10^3/uL L 10^3/uL (1.00-3.00) Absolute Monos (auto) 0.54 10^3/uL 10^3/uL (0.30-0.80) Absolute Eos (auto) 0.10 10^3/uL 10^3/uL (0.03-0.40) Absolute Basos (auto) 0.02 10^3/uL 10^3/uL (0.02-0.10) Absolute Nucleated RBC 0.00 10^3/uL 10^3/uL (0-0.01) Immature Gran % 0.5 % % (0.0-1.1) Immature Gran # 0.04 10^3/uL 10^3/uL (0.00-0.10) PT INR Turbidity Sodium 141 mEq/L mEq/L (135-145) Potassium 3.5 mEq/L mEq/L (3.5-5.2) Chloride 102 mEq/L mEq/L (97-110) Carbon Dioxide 25 mEq/l mEq/l (22-31) Anion Gap 14 mEq/L mEq/L (8-16) BUN 21 mg/dL mg/dL (7-23) Creatinine 0.6 mg/dL mg/dL (0.6-1.0) Estimated GFR > 60 Glucose 93 mg/dL mg/dL (70-100) Calcium 9.5 mg/dL mg/dL (8.5-10.4) Troponin I Specimen Hemolysis Urine Color Urine Appearance Urine pH Ur Specific Anna Urine Protein Urine Ketones Urine Blood Urine Nitrate Urine Bilirubin Urine Urobilinogen Ur Leukocyte Esterase Urine RBC Urine WBC Ur Epithelial Cells Urine Mucus Urine Glucose Departure - Departure Disposition: Home, Routine, Self-Care Clinical Impression: Hypertension Qualifiers: Hypertension type: essential hypertension Qualified Code(s): I10 - Essential ( primary) hypertension Condition: Good Instructions: Hypertension (ED) Additional Instructions: Continue regular medications. Keep your appointment tomorrow with Zina Hernandez at Dr. Chan office. Follow up with Dr. Rivera for further blood pressure management in the next 5-7 days Referrals: Angie Elizalde MD [Primary Care Provider] - As per Instructions Laurent Rivera MD [Medical Doctor] - As per Instructions Brian Chan MD [Medical Doctor] - As per Instructions
[2018-01-24 12:26] LABS: INR 1.19 (0.83-1.16); PROTIME(PATIENT) 15.3 SEC (12.0-15.0)
[2018-01-24 14:33] VITALS: BP 160/102
== END 2018-01-24 14:33 | disposition home or self-care (01) ==
DX: I10 Essential (primary) hypertension (principal); I65.23 Occlusion and stenosis of bilateral carotid arteries; J45.909 Unspecified asthma, uncomplicated; Z86.73 Personal history of transient ischemic attack (TIA), and cerebral infarction without residual deficits; Z87.891 Personal history of nicotine dependence

== ENCOUNTER 2018-04-26 11:27 | Inpatient (IN) | payer OTHER ==
--- NOTE | 2018-04-26 12:11 | EDPHY ---
H & P Stated Complaint: general abd pain/bloating painful stooling - Personal History Current Tetanus Diphtheria and Acellular Pertussis (TDAP): Unsure - Medical/Surgical History Hx Asthma: Yes Hx Chronic Respiratory Disease: Yes Hx Diabetes: No Hx Cardiac Disease: Yes Hx Renal Disease: No Hx Cirrhosis: No Hx Alcoholism: No Hx HIV/AIDS: No Hx Splenectomy or Spleen Trauma: No Other PMH: HTN, CAROTID STENOSIS, CVA ,TIA, Rheumatiod artheritis, hyperlipidemia, a fib, asthma, carotid surgery. Patent foramina ovale. Stroke 12 15 at [facility] thought to be related to a disrupted carotid plaque. Atrial tachycardia - Social History Smoking Status: Former smoker Time Seen by Provider: 04/26/18 11:41 HPI/ROS: CHIEF COMPLAINT: Abdominal pain and distention since this morning HISTORY OF PRESENT ILLNESS: 77-year-old female arrives via private vehicle complaining of lower abdominal pain which woke her at 5:45 a.m. This morning. Pain is primarily in the right lower quadrant although she feels in the bilateral lower quadrants. She had a bowel movement this morning and noted pain at her anus with defecation. No blood. She does feel increased sensitivity in her perianal region. No nausea or vomiting. No diarrhea. No recent illness. No trauma. No fever or chills. Last oral intake was a protein shake at 7:30 a.m. This morning which he tolerated well. Did not elicit abdominal pain post ingestion. PRIMARY CARE PROVIDER: Dr. Angie Elizalde REVIEW OF SYSTEMS: A ten point review of systems was performed and is negative with the exception of the items mentioned in the HPI PAST MEDICAL & SURGICAL HISTORY: History of left parietal stroke. Rheumatoid arthritis. Hypertension. Hyperlipidemia. TIA. Total Hysterectomy. SOCIAL HISTORY: Nonsmoker PHYSICAL EXAM (Prior to examination, patient consented to physical exam, hands were washed and my usual and customary physical exam procedures followed) 1) GENERAL: Well-developed, well-nourished, alert and oriented. Appears to be in no acute distress. 2) HEAD: Normocephalic, atraumatic 3) HEENT: Pupils equal, round, reactive to light bilaterally. Sclera anicteric. [Nasopharynx, oropharynx, clear, no lesions. Moist mucous membrane 4) NECK: Full range of motion, no meningeal signs. 5) LUNGS: Clear auscultation bilaterally, no wheezes, no rhonchi, no retractions. 6) HEART: Regular rate and rhythm, no murmur, no heave, no gallop. 7) ABDOMEN: No guarding, tender to palpation bilateral lower quadrants right greater than left negative Farris's, negative Rovsing's, negative peritoneal sign, no lesions no vesicles 8) MUSCULOSKELETAL: Moving all extremities, no focal areas of tenderness, no obvious trauma. No peripheral edema or discoloration. 9) BACK: No CVA tenderness, no midline vertebral tenderness, no fluctuance, no step-off, no obvious trauma, no visual or palpable abnormality. 10) SKIN: No rash, no petechiae. 11) Psychiatric: Patient is oriented X 3, there is no agitation. DIFFERENTIAL DIAGNOSIS: My differential diagnosis includes, but is not limited to, acute appendicitis, acute cholecystitis, bowel obstruction, acute pancreatitis, gastritis and urinary tract infection. The patient understands that this diagnosis is provisional and can never be 100% accurate. This is a partial list of diagnoses considered. These considerations are based on history , physical exam, past history and reassessment. (Yong Wilson) Constitutional: Initial Vital Signs Temperature (C) 36.7 C 04/26/18 11:32 Heart Rate 67 04/26/18 11:32 Respiratory Rate 18 04/26/18 11:32 Blood Pressure 171/80 H 04/26/18 11:32 O2 Sat (%) 95 04/26/18 11:32 O2 Delivery Mode Room Air Allergies/Adverse Reactions: aspirin Allergy (Mild, Verified 04/26/18 11:30) morphine Allergy (Verified 04/26/18 11:30) Home Medications: Medication Instructions Recorded Albuterol [Proventil Inhaler HFA 1 - 2 puffs IH Q4H PRN 03/21/17 (*)] Atorvastatin Calcium [Lipitor 40 40 mg PO DAILY@12 03/21/17 mg (*)] Clopidogrel Bisulfate [Plavix (*)] 75 mg PO DAILY@12 03/21/17 Diltiazem HCl [Diltiazem 24Hr ER] 120 mg PO DAILY 03/21/17 Tofacitinib Citrate [Xeljanz] 5 mg PO BID 03/21/17 Bystolic 10/22/17 Eliquis 10/22/17 Irbesartan 10/22/17 Lasix 01/24/18 Medical Decision Making - Diagnostics Imaging Results: Imaging Impressions Abdomen CT 04/26/18 12:13 Impression: 1. Large heterogeneously enhancing pelvic mass. By history, the patient has had prior hysterectomy. The etiology of this mass is indeterminate. This could represent peritoneal tumor, dermoid, sarcoma, or possibly teratoma. 2. No CT evidence of appendicitis, abscess or bowel obstruction. 3. Small amount of ascites around the liver and spleen. 4. Mild dilatation of the right renal pelvis and proximal to mid ureter. The distal ureter is mildly compressed by the pelvic mass. Findings discussed with Yong Wilson PAC at 14:01 hour, 04/26/2018. Procedures: 2:00 p.m.: Procedure: Anoscopy Indication: Pain with defecation Indications risks benefits discussed with patient. Patient provided verbal consent. With ER special effects technician Estefania at bedside anoscope was introduced in usual and customary manner. Extensive stool in the rectal vault noted. No fissures no hemorrhoids no lesions noted. Patient tolerated procedure well. ( Yong Wilson) ED Course/Re-evaluation: 2:10 p.m.: Patient has an abdominal mass seen on CT scan specific etiology of which is incompletely clear. Discussed this with the patient. I will consult with General surgery. Discussed findings with primary supervising physician Dr. Alistair Perez in the ER. 2:20 p.m.: Phone consultation with Dr. Brian Chan who will consult 3:15 p.m.: Patient has been seen exam by Dr. Brian Chan recommend patient be admitted to the hospitalist service he will plan on surgical intervention I possibly tomorrow. (Yong Wilson) Other Provider: PHYSICIAN DOCUMENTATION: The patient was evaluated and managed by the Physician Business Services Intern. My co- signature indicates that I have reviewed this chart and I agree with the findings and plan of care as documented. I am the secondary supervising physician. (Jose Luis Perez) Seen by Dr. Chan, requests admission to hospitalist service. Discussed with Dr. Phani Locke at 3:10 p.m. 1550: Dinorah for Da; cardiology consult as requested by Dustin. (Tanner Lloyd) - Data Points Laboratory Results: Laboratory Results 04/26/18 12:00 04/26/18 12:00 04/26/18 04/26/18 04/26/18 13:43 12:12 12:00 WBC RBC Hgb POC Hgb 11.9 gm/dL L gm/dL (12.6-16.3) Hct POC Hct 35 % L % (38-47) MCV MCH MCHC RDW Plt Count MPV Neut % (Auto) Lymph % (Auto) Blount % (Auto) Eos % (Auto) Baso % (Auto) Nucleat RBC Rel Count Absolute Neuts (auto) Absolute Lymphs (auto) Absolute Monos (auto) Absolute Eos (auto) Absolute Basos (auto) Absolute Nucleated RBC Immature Gran % Immature Gran # POC Sodium 136 mEq/L mEq/L (135-145) Sodium 138 mEq/L mEq/L (135-145) POC Potassium 4.1 mEq/L mEq/L (3.3-5.0) Potassium 4.4 mEq/L mEq/L (3.3-5.0) POC Chloride 101 mEq/L mEq/L (97-110) Chloride 100 mEq/L mEq/L (97-110) Carbon Dioxide 23 mEq/l mEq/l (22-31) Anion Gap 15 mEq/L mEq/L (8-16) POC BUN 23 mg/dL mg/dL (7-23) BUN 21 mg/dL mg/dL (7-23) Creatinine 0.7 mg/dL mg/dL (0.6-1.0) POC Creatinine 0.7 mg/dL mg/dL (0.6-1.0) Estimated GFR > 60 Glucose 94 mg/dL mg/dL (70-100) POC Glucose 102 mg/dL H mg/dL (70-100) Calcium 9.9 mg/dL mg/dL (8.5-10.4) Total Bilirubin 1.2 mg/dL mg/dL (0.1-1.4) Conjugated Bilirubin 0.7 mg/dL H mg/dL (0.0-0.5) Unconjugated Bilirubin 0.5 mg/dL mg/dL (0.0-1.1) AST 42 IU/L IU/L (14-46) ALT 50 IU/L IU/L (9-52) Alkaline Phosphatase 86 IU/L IU/L (38-126) Total Protein 6.9 g/dL g/dL (6.3-8.2) Albumin 4.1 g/dL g/dL (3.5-5.0) Lipase 84 IU/L IU/L (23-300) Specimen Hemolysis 104 Urine Color YELLOW Urine Appearance CLEAR Urine pH 7.0 (5.0-7.5) Ur Specific [place] 1.023 (1.002-1.030) Urine Protein NEGATIVE (NEGATIVE) Urine Ketones TRACE H (NEGATIVE) Urine Blood NEGATIVE (NEGATIVE) Urine Nitrate NEGATIVE (NEGATIVE) Urine Bilirubin NEGATIVE (NEGATIVE) Urine Urobilinogen NEGATIVE EU EU (0.2-1.0) Ur Leukocyte Esterase NEGATIVE (NEGATIVE) Urine RBC 1-3 /hpf /hpf (0-3) Urine WBC 1-3 /hpf /hpf (0-3) Ur Epithelial Cells TRACE /lpf /lpf (NONE-1+) Urine Glucose NEGATIVE (NEGATIVE) 04/26/18 12:00 WBC 11.32 10^3/uL H 10^3/uL (3.80-9.50) RBC 3.79 10^6/uL L 10^6/uL (4.18-5.33) Hgb 11.7 g/dL L g/dL (12.6-16.3) POC Hgb Hct 33.8 % L % (38.0-47.0) POC Hct MCV 89.2 fL fL (81.5-99.8) MCH 30.9 pg pg (27.9-34.1) MCHC 34.6 g/dL g/dL (32.4-36.7) RDW 13.4 % % (11.5-15.2) Plt Count 381 10^3/uL 10^3/uL (150-400) MPV 9.9 fL fL (8.7-11.7) Neut % (Auto) 85.0 % H % (39.3-74.2) Lymph % (Auto) 6.3 % L % (15.0-45.0) Blount % (Auto) 7.2 % % (4.5-13.0) Eos % (Auto) 0.4 % L % (0.6-7.6) Baso % (Auto) 0.3 % % (0.3-1.7) Nucleat RBC Rel Count 0.0 % % (0.0-0.2) Absolute Neuts (auto) 9.63 10^3/uL H 10^3/uL (1.70-6.50) Absolute Lymphs (auto) 0.71 10^3/uL L 10^3/uL (1.00-3.00) Absolute Monos (auto) 0.82 10^3/uL H 10^3/uL (0.30-0.80) Absolute Eos (auto) 0.04 10^3/uL 10^3/uL (0.03-0.40) Absolute Basos (auto) 0.03 10^3/uL 10^3/uL (0.02-0.10) Absolute Nucleated RBC 0.00 10^3/uL 10^3/uL (0-0.01) Immature Gran % 0.8 % % (0.0-1.1) Immature Gran # 0.09 10^3/uL 10^3/uL (0.00-0.10) POC Sodium Sodium POC Potassium Potassium POC Chloride Chloride Carbon Dioxide Anion Gap POC BUN BUN Creatinine POC Creatinine Estimated GFR Glucose POC Glucose Calcium Total Bilirubin Conjugated Bilirubin Unconjugated Bilirubin AST ALT Alkaline Phosphatase Total Protein Albumin Lipase Specimen Hemolysis Urine Color Urine Appearance Urine pH Ur Specific [place] Urine Protein Urine Ketones Urine Blood Urine Nitrate Urine Bilirubin Urine Urobilinogen Ur Leukocyte Esterase Urine RBC Urine WBC Ur Epithelial Cells Urine Glucose Point of Care Test Results: Chemistry 04/26/18 12:12 POC Sodium 136 mEq/L mEq/L (135-145) POC Potassium 4.1 mEq/L mEq/L (3.3-5.0) POC Chloride 101 mEq/L mEq/L (97-110) POC BUN 23 mg/dL mg/dL (7-23) POC Creatinine 0.7 mg/dL mg/dL (0.6-1.0) POC Glucose 102 mg/dL H mg/dL (70-100) ISTAT H&H 04/26/18 12:12 POC Hgb 11.9 gm/dL L gm/dL (12.6-16.3) POC Hct 35 % L % (38-47) Departure - Departure Disposition: [facility] Inpatient Acute Clinical Impression: Abdominal mass Qualifiers: Abdominal location: right lower quadrant Qualified Code(s): R19.03 - Right lower quadrant abdominal swelling, mass and lump Condition: Fair
[2018-04-26 12:15] LABS: PLATELET COUNT 381 10^3/uL (150-400)
[2018-04-26] MEDS ORDERED: IOPAMIDOL (ISOVUE-300) 100 ML BTL ONE (12:24)
--- NOTE | 2018-04-26 16:25 | PDCARPN ---
Cardiology Progress Note Chief Complaint: PAF/ need for urgent surgery/preop Assessment/Plan: Assessment: 77-year-old female with a history of carotid endarterectomy, atrial tachycardia , hypertension, and PAF. Other PMH is parietal stroke related to critical carotid stenosis 2015, RA, OA, PFO, TIA. Her CHADS-VASC score is 6 on the basis of age, stroke, hypertension, and female gender. After recent TIA, a LINQ ILR was placed. Presents to ED and now admitted after noting abdominal pain and bloating. Found to have a large abdominal mass. #. preop: able to achieve about 4 METs without angina; has chronic dyspnea and edema OK to hold Plavix and Eliquis will defer bridging to mitigate stroke risk as her last AF was a few months ago #. PAF: last ILR interrogation shows AF 12 minutes #. htn: elevated today possibly situational will follow #. mod PHTN: likely contributing to her edema and she is also on high dose Dilt Plan: OK to hold Plavix and Eliquis/resume when bleed risk from urgent surgery stable Subjective: No cp, pnd/orthopnea, palps. Reviewed/Discussed With: family Objective: Vital Signs (8 Hrs) Pulse Resp BP Pulse Ox 04/26/18 15:49 64 18 166/78 H 92 Result Diagrams: 04/26/18 12:00 04/26/18 12:00 Echocardiogram: last echo from our office 03/16 with normal LVEF, bord MVP, mod PHTN, mild TR - Physical Exam Constitutional: healthy appearing, no apparent distress Eyes: PERRL, anicteric sclera Ears, Nose, Mouth, Throat: moist mucous membranes Cardiovascular: regular rate and rhythm, no murmurs Respiratory: clear to auscultate bilat, no crackles Gastrointestinal: normoactive bowel sounds, no tenderness, No ascites Genitourinary: no suprapubic tenderness, no CVAT, No davis in urethra Neurologic: AAOx3 Psychiatric: cooperative, interactive ICD10 Worksheet Patient Problems: Problems Problem Status Onset Abdominal mass Acute Atrial fibrillation Acute Generalized weakness Acute Hypertension Acute Hyponatremia Acute Light headed Acute Paroxysmal atrial fibrillation Acute Stroke Acute TIA (transient ischemic attack) Acute
[2018-04-26] MEDS ORDERED: ONDANSETRON DISINTEGRATING 4 MG TAB PO PRN (16:44)
[2018-04-26] MEDS ORDERED: HYDROmorphONE/DILAUDID 1 MG/ML INJ IVP PRN (16:44)
[2018-04-26] MEDS ORDERED: PROMETHAZINE HCL 25 MG/ML INJ IVP PRN (16:44)
[2018-04-26] MEDS ORDERED: ACETAMINOPHEN 325 MG TAB PO PRN (16:44)
[2018-04-26] MEDS ORDERED: ONDANSETRON 4 MG/2 ML VIAL IVP PRN (16:44)
[2018-04-26] MEDS ORDERED: ALBUTEROL 60 PUFFS/8 GM MDI IH PRN (18:12)
[2018-04-26] MEDS ORDERED: FUROSEMIDE 20 MG TAB PO PRN (18:12)
[2018-04-26] MEDS: oxyCODONE IR 5 MG TAB PO PRN ×2 (19:45→23:21)
--- NOTE | 2018-04-26 20:29 | SOAPPROG ---
SOAP Progress Note Assessment/Plan: Assessment: 77 FEMALE WITH LARGE PELVIC MASS CAUSING PAIN/ ADMIT FOR EVAL AND IM CONSULT MASS DOES NOT INVOLVE M ROOT OF MESENTERY AND MAY BE RESECTABLE WILL CARDS CLEARANCE AND ANTICOGULATION REVERSAL Plan:LAP AND RESECTION OR BX WHEN MEDICALLY CLEARED 04/26/18 20:27 Objective: Vital Signs Temp Pulse Resp BP Pulse Ox 36.7 C 64 18 166/78 H 92 04/26/18 11:32 04/26/18 15:49 04/26/18 15:49 04/26/18 15:49 04/26/18 15:49 ICD10 Worksheet Patient Problems: Problems Problem Status Onset Abdominal mass Acute Atrial fibrillation Acute Generalized weakness Acute Hypertension Acute Hyponatremia Acute Light headed Acute Paroxysmal atrial fibrillation Acute Stroke Acute TIA (transient ischemic attack) Acute
--- NOTE | 2018-04-26 20:35 | GHP ---
[f rep st] HISTORY AND PHYSICAL DATE OF ADMISSION: 04/26/2018 CHIEF COMPLAINT: Abdominal pain and bloating. HISTORY: This is a 77-year-old female, past medical history of CVA, rheumatoid arthritis, and denton ry artery disease who presents with complaints of acute onset of significant abdominal pain. The pat joaquinanastacio notes that she has had abdominal bloating present for at least 3-4 days that she initially figur ed was related to her chronic edema that she has in her bilateral lower extremities. Today, however, she had significant abdominal pain located primarily in her mid abdominal region and bilateral lower quadrants. She notes that it is somewhat worse with eating. She has not had nausea or vomiting. S he has not been eating much all day today. She has been having normal bowel movements, though she di d have some pain with bowel movement today. She has not had fevers or chills. She denies any night sweats. She does note that over the last 6 months she has had an unintentional, approximately 30-dimas nd weight loss, although more recently some of that weight has been creeping back up. PAST MEDICAL HISTORY: Includes: 1. CVA/TIA. 2. Carotid stenosis. 3. Rheumatoid arthritis on chronic immune suppression. 4. Hypertension. 5. Hyperlipidemia. 6. Peptic ulcer disease. 7. PFO. 8. Atrial fibrillation. PAST SURGICAL HISTORY: Includes: 1. Hysterectomy. 2. CEA. 3. Bilateral knee surgeries. 4. Back surgery. FAMILY HISTORY: Mother has had a stroke. SOCIAL HISTORY: The patient has a remote tobacco use history. She does not drink. She is accompani ed by her son and granddaughter. REVIEW OF SYSTEMS: A 10-point review of systems obtained, negative except as per HPI. HOME MEDICATIONS: 1. Plavix. 2. Lipitor. 3. Potassium. 4. Diltiazem. 5. Avapro. 6. Lasix. 7. Albuterol. 8. Nebivolol. 9. Apixaban. 10. Xeljanz. ALLERGIES: Aspirin and morphine. PHYSICAL EXAM: VITAL SIGNS: BP 166/78, heart rate 64, respiratory rate 18, O2 saturations 92% on ro om air. GENERAL APPEARANCE: Well-developed, well-nourished female. Awake and alert. No acute dist ress. EYES: Anicteric. HENT: Oropharynx clear. CARDIOVASCULAR: Regular rate and rhythm, no MRG. PULMONARY: CTA bilaterally, normal work of breathing. ABDOMEN: Soft, nontender. Decreased bowel sounds. EXTREMITIES: 1 to 2+ pitting edema bilateral lower extremities. SKIN: Warm, dry, well pe rfused. NEURO/PSYCH: Oriented and appropriate, pleasant. Clinical Data: Labs reviewed. Notable for white blood cell count of 11.3, hematocrit of 33.8, plate lets of 381. Chemistry is unremarkable. LFTs are unremarkable. Urinalysis shows trace ketones. Abdominal CT personally reviewed and interpreted along with the patient's family showing a large hete rogeneously enhancing pelvic mass of uncertain etiology. ASSESSMENT AND PLAN: A 77-year-old female with a past medical history of CVA, RA, and atrial fibrill ation, on chronic anticoagulation, presenting with abdominal pain found to be secondary to a large pe lvic mass. 1. Large pelvic mass. Dr. Chan has been consulted and has plans for surgical removal of this mass in the coming 1-2 days. The etiology of this mass is indeterminate, but per Radiology, could represe nt peritoneal tumor, dermoid sarcoma or possible teratoma. Anticoagulation will be held and patient will be made n.p.o. after midnight pending the likely surgical procedure in the morning. 2. Paroxysmal atrial fibrillation. Appreciate Cardiology input. She has been on Eliquis for this, last taken this morning. This will be held. Will continue diltiazem. Patient does appear to be rat e controlled. 3. History of CVA. This is thought to be secondary to carotid stenosis and patient is now status po st carotid endarterectomy. She does not have any real residual neurologic symptoms. 4. Rheumatoid arthritis for which she is chronically on immune modulating medication, Xeljanz. This will be held with presumed surgical intervention in the coming days. 5. Moderate pulmonary hypertension with chronic lower extremity edema that she states is stable. Sh villa is on chronic Lasix, which will be held for now pending likely surgical intervention in the morning . 6. Code status is DNR. She does have a and her son, Juan, would be her medical power of tax associate attorney. This may need to be modified given upcoming surgery. 7. Disposition: Inpatient status. Patient will need greater than 48-hour stay for evaluation and m anagement of above. 8. Patient is new to my care. Old records reviewed. and past medical history. Care rock n reviewed with ER physician including plans for surgical consultation. /[id number]/MODL
[2018-04-26] MEDS ORDERED: ATORVASTATIN CALCIUM 40 MG TAB PO SCH (21:00)
[2018-04-26] MEDS: SIMETHICONE 80 MG TAB CHEW PO SCH (21:09)
[2018-04-26] MEDS ORDERED: NS 1,000 ML IV SCH (23:59)
[2018-04-27] MEDS: SIMETHICONE 80 MG TAB CHEW PO SCH (08:14)
[2018-04-27 08:15] VITALS: BP 157/87
[2018-04-27] MEDS ORDERED: POTASSIUM CL 20 MEQ TAB PO SCH (09:00)
[2018-04-27] MEDS ORDERED: NEBIVOLOL HCL 5 MG TAB PO SCH (09:00)
[2018-04-27] MEDS ORDERED: IRBESARTAN 150 MG TAB PO SCH (09:00)
[2018-04-27] MEDS ORDERED: DILTIAZEM CD 180 MG CAP PO SCH (09:00)
--- NOTE | 2018-04-27 10:13 | PDCARPN ---
Cardiology Progress Note Chief Complaint: PAF/CVAs/preop Assessment/Plan: Assessment: 77-year-old female with a history of carotid endarterectomy, atrial tachycardia , hypertension, and PAF. Other PMH is parietal stroke related to critical carotid stenosis 2015, RA, OA, PFO, TIA, PHTN. Her CHADS-VASC score is 6 on the basis of age, stroke, hypertension, and female gender. After recent TIA, a LINQ ILR was placed. Presented to ED and now admitted after noting abdominal pain and bloating. Found to have a large abdominal mass. #. preop: able to achieve about 4 METs without angina; has chronic dyspnea and edema OK to hold Plavix and Eliquis spoke with Drs. Rivera and Dustin Rivera recommends bridging due to her high CHADS2 VA2Sc and waiting until next week Dustin agrees there is no bradley and OK to discharge for later surgical procedure #. PAF: last ILR interrogation shows AF 12 minutes (around January) #. htn: elevated today possibly situational will follow #. mod PHTN: likely contributing to her edema and she is also on high dose Dilt Plan: OK to hold Plavix Resume Eliquis until 48 hours before surgery Will bridge with Lovenox for 48 hours and resume anticoagulation after surgery 04/27/18 10:07 Subjective: Abd pain occurs with twisting. No cp, palps, dyspnea. Reviewed/Discussed With: family (Lynne), hospitalist (Dr. Burnette), multidisciplinary team (Drs. Chan and Miguel) Time Spent with Patient: greater than 35 minutes Time Spent with Patient: Greater than 35 minutes spent on this patients care, greater than 50% of time spent counseling, educating, and coordinating care regarding the above mentioned plan. Objective: Vital Signs (8 Hrs) Temp Pulse Resp BP Pulse Ox 04/27/18 08:40 157/87 H 04/27/18 08:39 85 157/87 H 04/27/18 08:12 85 157/87 H 04/27/18 07:36 98.4 F 66 16 156/63 H 92 04/27/18 03:52 97.3 F 63 16 122/69 H 90 L Intake/Output (24 Hrs) 04/26/18 04/27/18 04/28/18 05:59 05:59 05:59 Intake Total 250 Balance 250 Intake: Oral (ml) 250 Other: Weight 74.843 kg Intake Quantity Yes Sufficient Number of Voids Bedside Commode 1 Result Diagrams: 04/26/18 12:00 04/26/18 12:00 - Physical Exam Constitutional: healthy appearing, no apparent distress Eyes: PERRL Ears, Nose, Mouth, Throat: moist mucous membranes Cardiovascular: regular rate and rhythm, no rubs, no gallops Respiratory: clear to auscultate bilat, no crackles, no wheezes, No reduced air movement Gastrointestinal: normoactive bowel sounds Skin: no rashes, no abrasions, warm Neurologic: AAOx3 Psychiatric: cooperative, interactive ICD10 Worksheet Patient Problems: Problems Problem Status Onset Abdominal mass Acute Atrial fibrillation Acute Generalized weakness Acute Hypertension Acute Hyponatremia Acute Light headed Acute Paroxysmal atrial fibrillation Acute Stroke Acute TIA (transient ischemic attack) Acute
--- NOTE | 2018-04-27 10:38 | PDMN ---
Medical Necessity Medical necessity: est los>2mn for large pelvic mass of undetermined etiology; admit for surgical removal of mass in 1-2 days, hold anticoagulation; comorbid PAF, RA, pulmonary htn, hx CVA; per order and H&P 04/27/18
[2018-04-27] MEDS ORDERED: APIXABAN 5 MG TAB PO SCH (11:00)
[2018-04-27] MEDS: oxyCODONE IR 5 MG TAB PO PRN (11:24)
--- NOTE | 2018-04-27 12:41 | ASDISCHSUM ---
Discharge Information Plan Status: Medically Cleared to Leave: Discharge Date: CM D/C Disposition: ADT D/C Disposition:Home, Routine, Self-Care Projected Discharge Date: Transportation at D/C: Discharge Delay Reason: Follow-Up Date: Discharge Slot: Final Diagnosis: Placement Information Patient Contact Information Contact Name:MELLO Relationship:Son Address:[address] [phone] Work Phone: City: [facility] Phone: State/Zip Code:[place] Email: Financial Information Financial Class:Medicare Primary Plan Desc:MEDICARE INPATIENT Primary Plan Number:[id number] Secondary Plan Desc:[facility] Secondary Plan Number:[id number] Assessment Information LACE LACE Length of stay for Answers: Less than 1 day current admission Acuity / Level of Answers: Yes Care: Did the patient have an inpatient admission? Comorbidities - select Answers: Cerebrovascular disease all that apply (CVA, TIA, aneurysms, vasc ular dementia) Coronary Artery Disease Peptic ulcer disease Other Notes: HTN; Atrial fibrillatio n # of Emergency department Answers: 1-2 visits in the last 6 months Score: 10 Date Signed: 04/27/2018 12:39 PM Electronically Signed By:Kassandra Velez LCSW [facility] CM Progress Note CM Note CM Note Notes: Pt to DC today and have surgery when medically cleared. Pt's dtr stated that pt will need 2 days of 2 shots/day prior to surgery and asked if [facility] could help. Pt used [facility] in past and they stated that pt should call a few days before they are needed and they will help her get MD orders. Date Signed: 04/27/2018 12:39 PM Electronically Signed By:Kassandra Velez [employer] INSURANCE CLAIM ADJUSTER Intervention Information
--- NOTE | 2018-04-27 12:44 | GDS ---
[f rep st] DISCHARGE SUMMARY DISCHARGE DIAGNOSES: 1. New abdominal mass concerning for malignancy. 2. History of stroke with carotid endarterectomy in 2015. 3. History of paroxysmal atrial tachycardia. 4. History of hypertension. 5. History of paroxysmal atrial fibrillation, on chronic anticoagulation with Eliquis. 6. Rheumatoid arthritis. 7. Osteoarthritis. 8. History of patent foramen ovale. 9. Pulmonary hypertension. PROCEDURES: 04/26/2018: Abdominal CT which shows a large heterogeneously enhancing pelvic mass whic h could be a peritoneal tumor, dermoid, sarcoma, or possible teratoma. Mild amount of ascites around the liver and spleen. Mild dilatation of the right renal pelvis and proximal to mid ureter. Distal ureter is mildly compressed by the pelvic mass. CONSULTATIONS: Dr. Chan of General Surgery. BRIEF HISTORY: Please see dictated H and P for complete details. In brief, Ms. Hailee Johnson is a 77-year-old female who has an extensive and complicated medical history, who started to note abdomina l bloating 3-4 days prior to presentation. On the day of admission, she had severe abdominal pain wo rsened with bowel movements. She presented to the emergency department and was found to have a large abdominal mass. HOSPITAL COURSE BY PROBLEM: 1. Abdominal mass. She has been seen by Dr. Chan on this admission. He has recommended lap versus open resection versus biopsy. Timing of this will be arranged for next week. 2. PAF. She has been on Eliquis therapy for her elevated CHADS/Vasc. Initially, it was thought tristen t we could hold this. However, since we are delaying surgery, we will plan to put her back on Eliqui s and then bridge given her history of strokes. She may be bridged with enoxaparin 48 hours prior to her surgery after cessation of her Eliquis therapy. 3. History of CVA and TIA. She has been on Plavix. This is being held and can possibly be resumed after her surgery. This will be on indefinite hold. 4. Hypertension. Her blood pressures have been [id number] elevated on this admission. This can be situational given her history of anxiety. We will plan to manage in the outpatient setting. PHYSICAL EXAMINATION: VITAL SIGNS: On day of discharge, blood pressure 157/87, heart rate of 66, re spirations 16, O2 saturation 92% on room air, temp of 98.4 degrees Fahrenheit. GENERAL: She is a pl easant female in no apparent distress. HEENT: Head is normocephalic, atraumatic. Eyes are without scleral icterus. Mucous membranes moist. HEART: Regular rate and rhythm with a soft 2/6 systolic e jection murmur. LUNGS: Clear. ABDOMEN: Has normoactive bowel sounds. SKIN: Warm and dry. PSYCH : Normal mood and affect. LABORATORY DATA: CBC with WBC 11.32, hemoglobin 11.7, hematocrit 33.8, platelet count of 381. BMP w ith sodium 136, potassium 4.1, chloride 101, CO2 23, BUN 23, creatinine 0.7, glucose 102. RESULTS PENDING: None. DIET: Per previous. ACTIVITY: As tolerated. DISCHARGE MEDICATIONS: Please see med reconciliation for complete details. Of note, we are stopping her Plavix. She is resuming her Eliquis today. She will inform us as to when her surgery is schedu led and, at that point, we will plan for cessation of Eliquis therapy with 48 hours of Lovenox. DISCHARGE INSTRUCTIONS: 1. Call Dr. Chan' office for scheduling surgical evaluation. 2. Hold medications as listed above. Please note that greater than 30 minutes was spent on discharge and coordination of care. /[id number]/MODL
== END 2018-04-27 12:56 | disposition home or self-care (01) | DRG 392 ==
LOC: F1N 16:34
PROVIDERS: ADMIT Internal Medicine; ATTEND Internal Medicine Interventional Cardiology
PROC: 0DJD8ZZ Inspection of Lower Intestinal Tract, Via Natural or Artificial Opening Endoscopic (ICD-10-PCS; principal; 2018-04-26)
DX: R19.07 Generalized intra-abdominal and pelvic swelling, mass and lump (principal); J45.909 Unspecified asthma, uncomplicated; I10 Essential (primary) hypertension; I48.0 Paroxysmal atrial fibrillation; Q21.1 Atrial septal defect; M06.9 Rheumatoid arthritis, unspecified; T45.1X5A Adverse effect of antineoplastic and immunosuppressive drugs, initial encounter; E78.5 Hyperlipidemia, unspecified; I27.20 Pulmonary hypertension, unspecified; Z86.73 Personal history of transient ischemic attack (TIA), and cerebral infarction without residual deficits; Z79.52 Long term (current) use of systemic steroids; Z66 Do not resuscitate; Z79.01 Long term (current) use of anticoagulants
CPT/HCPCS: 82435-PO; 82565-PO; 82947-PO; 84132-PO; 84295-PO; 84520-PO; 85014-PO; J2405; Q9967

== ENCOUNTER 2018-04-29 21:12 | Observation (INO) | payer OTHER ==
--- NOTE | 2018-04-29 21:18 | EDPHY ---
H & P Time Seen by Provider: 04/29/18 21:18 - Medical/Surgical History Hx Asthma: Yes Hx Chronic Respiratory Disease: Yes Hx Diabetes: No Hx Cardiac Disease: Yes Hx Renal Disease: No Hx Cirrhosis: No Hx Alcoholism: No Hx HIV/AIDS: No Hx Splenectomy or Spleen Trauma: No Other PMH: HTN, CAROTID STENOSIS, CVA ,TIA, Rheumatiod artheritis, hyperlipidemia, a fib, asthma, carotid surgery. Patent foramina ovale. Stroke 12 15 at [facility] thought to be related to a disrupted carotid plaque. Atrial tachycardia - Social History Smoking Status: Former smoker Constitutional: Initial Vital Signs Temperature (C) 36.7 C 04/29/18 21:20 Heart Rate 69 04/29/18 21:20 Respiratory Rate 18 04/29/18 21:20 Blood Pressure 182/77 H 04/29/18 21:20 O2 Sat (%) 93 04/29/18 21:20 O2 Delivery Mode Room Air Allergies/Adverse Reactions: aspirin Allergy (Mild, Verified 04/26/18 11:30) morphine Allergy (Verified 04/26/18 17:13) Vomiting Home Medications: Medication Instructions Recorded Albuterol [Proventil Inhaler HFA 1 - 2 puffs IH Q4H PRN 03/21/17 (*)] Atorvastatin Calcium [Lipitor 40 40 mg PO HS 03/21/17 mg (*)] Tofacitinib Citrate [Xeljanz] 5 mg PO BID 03/21/17 Apixaban [Eliquis] 5 mg PO BID 10/22/17 Irbesartan [Avapro 150 mg (*)] 150 mg PO DAILY 10/22/17 Nebivolol HCl [Bystolic] 20 mg PO DAILY 10/22/17 Furosemide [Lasix 20 MG (*)] 20 mg PO DAILY PRN 01/24/18 Diltiazem HCl [Diltiazem 24Hr Cd] 360 mg PO DAILY 04/26/18 Potassium Chloride 20 meq PO DAILY 04/26/18 Acetaminophen [Tylenol 325mg (*)] 650 mg PO Q4HRS PRN tab 04/27/18 Ondansetron Odt [Zofran Odt 4 mg 4 mg PO Q4HRS PRN #30 tab 04/27/18 (*)] oxyCODONE IR [Oxycodone Ir (*)] 5 - 10 mg PO Q3HRS PRN #30 tab 04/27/18 Medical Decision Making - Diagnostics Imaging Results: Imaging Impressions Head CT 04/29/18 21:26 Impression: No findings for acute infarct or intracranial hemorrhage. Mild periventricular and deep hemispheric white matter change can be seen with small vessel ischemic change. Old small infarct left parietal lobe. Results called and discussed with Braxton Hinton MD at 04/29/2018 22:14. Head CTA 04/29/18 21:26 Impression: Mild atherosclerotic calcifications intracranial carotid arteries bilaterally without flow significant stenosis or evidence for thrombus. Otherwise unremarkable. CT Angiogram Neck With Contrast Enhancement and Multiplanar Reconstructions History: Word finding difficulties. Technique: 1.25 mm axial multidetector helical CT imaging was performed through the neck while 85 mL Isovue-370 were injected intravenously without complication. The images were then transferred to an independent workstation where multiplanar and three-dimensional reconstructions were performed by the interpreting physician and reviewed at multiple windows. Dose reduction techniques were utilized. CTA Findings: Normal branching of the great vessels. Mild atherosclerotic calcification is seen at the carotid bulb bilateral without flow significant stenosis. No evidence for dissection. Both vertebral arteries are patent with the left being dominant. No flow significant stenosis or dissection in either vertebral artery. CT Neck Findings: Multilevel degenerative disk and degenerative joint disease in the cervical spine. No significant spondylolisthesis. No evidence for prevertebral soft tissue swelling. Multiple nodules are seen in the thyroid gland which have been evaluated previously with thyroid ultrasound January 2017. Impression: 1. No flow significant stenosis or dissection in either carotid artery or vertebral artery. 2. Other chronic findings as above. Measurement of carotid stenosis is based on the residual internal carotid diameter with [place] Symptomatic Carotid Endarterectomy Trial (NASCET) based stenosis levels. Results called and discussed with Braxton Hinton MD at 04/29/2018 22:19. Neck CTA 04/29/18 21:26 Impression: Mild atherosclerotic calcifications intracranial carotid arteries bilaterally without flow significant stenosis or evidence for thrombus. Otherwise unremarkable. CT Angiogram Neck With Contrast Enhancement and Multiplanar Reconstructions History: Word finding difficulties. Technique: 1.25 mm axial multidetector helical CT imaging was performed through the neck while 85 mL Isovue-370 were injected intravenously without complication. The images were then transferred to an independent workstation where multiplanar and three-dimensional reconstructions were performed by the interpreting physician and reviewed at multiple windows. Dose reduction techniques were utilized. CTA Findings: Normal branching of the great vessels. Mild atherosclerotic calcification is seen at the carotid bulb bilateral without flow significant stenosis. No evidence for dissection. Both vertebral arteries are patent with the left being dominant. No flow significant stenosis or dissection in either vertebral artery. CT Neck Findings: Multilevel degenerative disk and degenerative joint disease in the cervical spine. No significant spondylolisthesis. No evidence for prevertebral soft tissue swelling. Multiple nodules are seen in the thyroid gland which have been evaluated previously with thyroid ultrasound January 2017. Impression: 1. No flow significant stenosis or dissection in either carotid artery or vertebral artery. 2. Other chronic findings as above. Measurement of carotid stenosis is based on the residual internal carotid diameter with [place] Symptomatic Carotid Endarterectomy Trial (NASCET) based stenosis levels. Results called and discussed with Braxton Hinton MD at 04/29/2018 22:19. ED Course/Re-evaluation: CHIEF COMPLAINT: Difficulty word-finding, facial numbness and tingling HISTORY OF PRESENT ILLNESS: The patient is an anticoagulated (Eliquis) 77 y/o female with a history of CVA, TIA, and carotid stenosis complaining of difficulty word finding and facial numbness and tingling, onset 1 hour ago. She was recently released from the hospital after a postponed abdominal mass removal surgery. At that time, one of her anticoagulants was discontinued in preparation for surgery. This morning, she awoke feeling nauseated. She took her nausea medication twice and had a protein drink for breakfast and lunch and felt better. About an hour ago, she was talking on the phone with her daughter when she began experiencing numbness and tingling in her lips and tongue. She got off of the phone but felt she was having trouble saying the words she was thinking and had weakness in both legs. Currently she has some word finding trouble. She denies any one-sided numbness, weakness, or tingling, headache, or any other associated symptoms. She does have a history of hypoglycemia. She has a heart monitor in place and it is not known if it is MRI compatible. REVIEW OF SYSTEMS: A 10 point review of systems was performed and is negative with the exception of the elements mentioned in the history of present illness. PHYSICAL EXAM: HR, BP, O2 Sat, RR. Temp noted General Appearance: Alert, well hydrated, appropriate, and non-toxic appearing. Head: Atraumatic without scalp tenderness or obvious injury Eyes: Pupils equal, round, reactive to light and accommodation, EOMI, no trauma , no injection. Ears: Clear bilaterally, no perforation, normal landmarks Nose: Atraumatic, no rhinorrhea, clear. Throat: There is no erythema or exudates, no lesions, normal tonsils, mucus membranes moist. Neck: Supple, 2+ carotid upstroke, nontender, no lymphadenopathy. Respiratory: No retractions, no distress, no wheezes, and no accessory muscle use. Lungs are clear to auscultation bilaterally. Cardiovascular: Regular rate and rhythm, no murmurs, rubs, or gallops. Gastrointestinal: Abdomen is soft, nontender, non-distended, no masses, no rebound, no guarding, no peritoneal signs. Musculoskeletal: Normal active ROM of all extremities, atraumatic. Neurological: Alert, appropriate, and interactive. The patient has normal DTRs and non-focal cranial nerves, motor, sensory, and cerebellar exam. Skin: No rashes, good turgor, no nodules on palpation. Past medical history: CVA, TIA, carotid stenosis, abdominal mass, hypoglycemia Past surgical history: Denies Family history: Non-contributory Social history: Daughter at bedside, lives in [place], retired DIAGNOSTICS/PROCEDURES/CRITICAL CARE TIME: Study: CT of the head, CTA of the head Indication: Word-finding difficulty, numbness and tingling Results: CT scan of the body parts was obtained. The results of the study are normal. The study was read by the radiologist, Dr. Kitchen. I viewed the images myself on the PACS system. The 12 lead EKG was interpreted by myself. See hard copy and/or "tracemaster" electronic copy for interpretation. Sinus rhythm. DIFFERENTIAL DIAGNOSIS: The differential diagnosis for this patient included but was not limited to CVA, TIA, hypoglycemia, intracranial hemorrhage, and electrolyte abnormalities. MEDICAL DECISION MAKING: The patient presents with word-finding difficulty, and facial numbness and tingling, onset 1 hour ago and improving. She is not a TPA candidate due to her anticoagulants. She cannot be MRI due to her heart monitor. Plan for CT and CTA, EKG, CBC, basic metabolic panel, iSTAT, coagulation, and urinalysis. 10:15 PM - The CT and CTA are normal. I reassessed the patient and she has improved. She has no residual symptoms. I offered admission for further workup and she agrees. 10:30 PM - Dr. Granados will be the admitting physician. - Data Points Laboratory Results: Laboratory Results 04/29/18 21:40 04/29/18 21:40 04/29/18 04/29/18 04/29/18 21:40 21:40 21:40 WBC RBC Hgb POC Hgb Hct POC Hct MCV MCH MCHC RDW Plt Count MPV Neut % (Auto) Lymph % (Auto) [place] % (Auto) Eos % (Auto) Baso % (Auto) Nucleat RBC Rel Count Absolute Neuts (auto) Absolute Lymphs (auto) Absolute Monos (auto) Absolute Eos (auto) Absolute Basos (auto) Absolute Nucleated RBC Immature Gran % Immature Gran # PT 17.2 SEC H SEC (12.0-15.0) INR 1.39 H (0.83-1.16) POC Sodium Sodium 130 mEq/L L mEq/L (135-145) POC Potassium Potassium 3.5 mEq/L mEq/L (3.3-5.0) POC Chloride Chloride 96 mEq/L L mEq/L (97-110) Carbon Dioxide 26 mEq/l mEq/l (22-31) Anion Gap 8 mEq/L mEq/L (8-16) POC BUN BUN 9 mg/dL mg/dL (7-23) Creatinine 0.6 mg/dL mg/dL (0.6-1.0) POC Creatinine Estimated GFR > 60 Glucose 100 mg/dL mg/dL (70-100) POC Glucose Calcium 9.7 mg/dL mg/dL (8.5-10.4) Urine Color PALE YELLOW Urine Appearance CLEAR Urine pH 7.0 (5.0-7.5) Ur Specific [employer] 1.006 (1.002-1.030) Urine Protein 1+ H (NEGATIVE) Urine Ketones NEGATIVE (NEGATIVE) Urine Blood 1+ H (NEGATIVE) Urine Nitrate NEGATIVE (NEGATIVE) Urine Bilirubin NEGATIVE (NEGATIVE) Urine Urobilinogen NEGATIVE EU EU (0.2-1.0) Ur Leukocyte Esterase NEGATIVE (NEGATIVE) Urine RBC 5-10 /hpf H /hpf (0-3) Urine WBC 1-3 /hpf /hpf (0-3) Ur Epithelial Cells NONE SEEN /lpf /lpf (NONE-1+) Urine Glucose NEGATIVE (NEGATIVE) 04/29/18 04/29/18 21:40 21:25 WBC 7.21 10^3/uL 10^3/uL (3.80-9.50) RBC 3.68 10^6/uL L 10^6/uL (4.18-5.33) Hgb 11.2 g/dL L g/dL (12.6-16.3) POC Hgb 12.2 gm/dL L gm/dL (12.6-16.3) Hct 33.0 % L % (38.0-47.0) POC Hct 36 % L % (38-47) MCV 89.7 fL fL (81.5-99.8) MCH 30.4 pg pg (27.9-34.1) MCHC 33.9 g/dL g/dL (32.4-36.7) RDW 13.4 % % (11.5-15.2) Plt Count 362 10^3/uL 10^3/uL (150-400) MPV 10.1 fL fL (8.7-11.7) Neut % (Auto) 65.1 % % (39.3-74.2) Lymph % (Auto) 19.4 % % (15.0-45.0) [place] % (Auto) 11.8 % % (4.5-13.0) Eos % (Auto) 2.8 % % (0.6-7.6) Baso % (Auto) 0.3 % % (0.3-1.7) Nucleat RBC Rel Count 0.0 % % (0.0-0.2) Absolute Neuts (auto) 4.70 10^3/uL 10^3/uL (1.70-6.50) Absolute Lymphs (auto) 1.40 10^3/uL 10^3/uL (1.00-3.00) Absolute Monos (auto) 0.85 10^3/uL H 10^3/uL (0.30-0.80) Absolute Eos (auto) 0.20 10^3/uL 10^3/uL (0.03-0.40) Absolute Basos (auto) 0.02 10^3/uL 10^3/uL (0.02-0.10) Absolute Nucleated RBC 0.00 10^3/uL 10^3/uL (0-0.01) Immature Gran % 0.6 % % (0.0-1.1) Immature Gran # 0.04 10^3/uL 10^3/uL (0.00-0.10) PT INR POC Sodium 134 mEq/L L mEq/L (135-145) Sodium POC Potassium 3.2 mEq/L L mEq/L (3.3-5.0) Potassium POC Chloride 95 mEq/L L mEq/L (97-110) Chloride Carbon Dioxide Anion Gap POC BUN 7 mg/dL mg/dL (7-23) BUN Creatinine POC Creatinine 0.6 mg/dL mg/dL (0.6-1.0) Estimated GFR Glucose POC Glucose 110 mg/dL H mg/dL (70-100) Calcium Urine Color Urine Appearance Urine pH Ur Specific [employer] Urine Protein Urine Ketones Urine Blood Urine Nitrate Urine Bilirubin Urine Urobilinogen Ur Leukocyte Esterase Urine RBC Urine WBC Ur Epithelial Cells Urine Glucose Point of Care Test Results: Chemistry 04/29/18 21:25 POC Sodium 134 mEq/L L mEq/L (135-145) POC Potassium 3.2 mEq/L L mEq/L (3.3-5.0) POC Chloride 95 mEq/L L mEq/L (97-110) POC BUN 7 mg/dL mg/dL (7-23) POC Creatinine 0.6 mg/dL mg/dL (0.6-1.0) POC Glucose 110 mg/dL H mg/dL (70-100) ISTAT H&H 04/29/18 21:25 POC Hgb 12.2 gm/dL L gm/dL (12.6-16.3) POC Hct 36 % L % (38-47) Departure - Departure Disposition: [facility] Inpatient Acute Clinical Impression: TIA (transient ischemic attack) Qualifiers: Transient cerebral ischemia type: other Qualified Code(s): G45.8 - Other transient cerebral ischemic attacks and related syndromes Condition: Fair Report Scribed for: Braxton Hinton Report Scribed by: Amara Valdes Date of Report: 04/29/18 Time of Report: 22:29
--- NOTE | 2018-04-29 21:22 | CPEKG ---
Heart Rate: 68 RR Interval: 882 P-R Interval: 208 QRSD Interval: 86 QT Interval: 440 QTC Interval: 469 P [place]: 65 QRS [place]: -6 T Wave [place]: 26 EKG Severity - ABNORMAL ECG - EKG Impression: SINUS RHYTHM EKG Impression: MULTIPLE ATRIAL PREMATURE COMPLEXES Electronically Signed By: Kim Best 30-Apr-2018 07:08:07
[2018-04-29] MEDS ORDERED: IOPAMIDOL (ISOVUE 370) 100 ML BTL IV ONE (21:30)
[2018-04-29 21:48] LABS: PLATELET COUNT 362 10^3/uL (150-400)
[2018-04-29] MEDS ORDERED: ACETAMINOPHEN 325 MG TAB PO PRN (22:25)
[2018-04-29] MEDS ORDERED: ONDANSETRON DISINTEGRATING 4 MG TAB PO PRN (22:25)
[2018-04-29] MEDS ORDERED: ONDANSETRON 4 MG/2 ML VIAL IVP PRN (22:25)
[2018-04-29 22:28] LABS: INR 1.39 (0.83-1.16); PROTIME(PATIENT) 17.2 SEC (12.0-15.0)
--- NOTE | 2018-04-29 23:59 | PDGENHP ---
History and Physical - Chief Complaint Word finding difficulty - History of Present Illness 77 yo F w/ hx of multiple strokes, AF, PFO, HTN and recently diagnosed pelvic mass presents with word finding difficulty. Patient states she was on the phone with her daughter around 8:15 PM when she suddenly had difficulty getting words out. She states she knew what she wanted to say but she could not form the words. In addition, she noted mouth numbness and poor tongue coordination. Her symptoms lasted for about 15 minutes. Her symptoms had resolved by the time she arrived in the ED and she remained symptom free at the time of my evaluation. She denies any symptoms of illness such as fever and chills. Of note, the patient has had multiple prior strokes. She has minimal physical symptoms from this but her daughter tells me she had suffered cognitively from the cumulative effect of the strokes. Review of records reveals excellent risk factor modification over the last several years: CEA in 2014, known PFO, on Eliquis, statin, and Plavix. Importantly her Plavix is currently being held due to plan for abdominal surgery in the near future to evaluate her new abdominal mass. History Information - Allergies/Home Medication List Allergies/Adverse Reactions: aspirin Allergy (Mild, Verified 04/26/18 11:30) morphine Allergy (Verified 04/26/18 17:13) Vomiting Home Medications: Albuterol [Proventil Inhaler HFA (*)] 1 - 2 puffs IH Q4H PRN 03/21/17 [Last Taken Unknown] Atorvastatin Calcium [Lipitor 40 mg (*)] 40 mg PO HS 03/21/17 [Last Taken ] Tofacitinib Citrate [Xeljanz] 5 mg PO BID 03/21/17 [Last Taken 04/26/18 09:00] Apixaban [Eliquis] 5 mg PO BID 10/22/17 [Last Taken 04/26/18 09:00] Irbesartan [Avapro 150 mg (*)] 150 mg PO DAILY 10/22/17 [Last Taken 04/26/18] Nebivolol HCl [Bystolic] 20 mg PO DAILY 10/22/17 [Last Taken 04/26/18] Furosemide [Lasix 20 MG (*)] 20 mg PO DAILY PRN 01/24/18 [Last Taken 04/22/18] Diltiazem HCl [Diltiazem 24Hr Cd] 360 mg PO DAILY 04/26/18 [Last Taken 04/26/18] Potassium Chloride 20 meq PO DAILY 04/26/18 [Last Taken 04/26/18] I have personally reviewed and updated: family history, medical history - Past Medical History atrial fibrillation, arthritis, CVA, hypertension, TIA - Surgical History Additional surgical history: CEA - Family History Positive for: stroke - Social History Smoking Status: Former smoker Review of Systems Review of Systems: ROS: 10pt was reviewed & negative except for what was stated in HPI & below Physical Exam Physical Exam: Temp Pulse Resp BP Pulse Ox 36.7 C 60 16 161/92 H 93 04/29/18 21:27 04/29/18 23:08 04/29/18 23:08 04/29/18 23:08 04/29/18 23:08 Constitutional: no apparent distress, not in pain Eyes: PERRL, EOMI Ears, Nose, Mouth, Throat: moist mucous membranes, no oral mucosal ulcers Cardiovascular: regular rate and rhythym, systolic murmur Respiratory: no respiratory distress, clear to auscultation Gastrointestinal: normoactive bowel sounds, soft, non-tender abdomen Skin: warm, normal color Musculoskeletal: full muscle strength, no muscle tenderness Neurologic: AAOx3, sensation intact bilaterally, CN II-XII Intact, other (NIHSS 0), No weakness, No numbness, No facial droop Psychiatric: interacting appropriately, not anxious Lab Data & Imaging Review 04/29/18 21:40 04/29/18 21:40 WBC 7.21 10^3/uL (3.80-9.50) 04/29/18 21:40 RBC 3.68 10^6/uL (4.18-5.33) L 04/29/18 21:40 Hgb 11.2 g/dL (12.6-16.3) L 04/29/18 21:40 POC Hgb 12.2 gm/dL (12.6-16.3) L 04/29/18 21:25 Hct 33.0 % (38.0-47.0) L 04/29/18 21:40 POC Hct 36 % (38-47) L 04/29/18 21:25 MCV 89.7 fL (81.5-99.8) 04/29/18 21:40 MCH 30.4 pg (27.9-34.1) 04/29/18 21:40 MCHC 33.9 g/dL (32.4-36.7) 04/29/18 21:40 RDW 13.4 % (11.5-15.2) 04/29/18 21:40 Plt Count 362 10^3/uL (150-400) 04/29/18 21:40 MPV 10.1 fL (8.7-11.7) 04/29/18 21:40 Neut % (Auto) 65.1 % (39.3-74.2) 04/29/18 21:40 Lymph % (Auto) 19.4 % (15.0-45.0) 04/29/18 21:40 Edwards % (Auto) 11.8 % (4.5-13.0) 04/29/18 21:40 Eos % (Auto) 2.8 % (0.6-7.6) 04/29/18 21:40 Baso % (Auto) 0.3 % (0.3-1.7) 04/29/18 21:40 Nucleat RBC Rel Count 0.0 % (0.0-0.2) 04/29/18 21:40 Absolute Neuts (auto) 4.70 10^3/uL (1.70-6.50) 04/29/18 21:40 Absolute Lymphs (auto) 1.40 10^3/uL (1.00-3.00) 04/29/18 21:40 Absolute Monos (auto) 0.85 10^3/uL (0.30-0.80) H 04/29/18 21:40 Absolute Eos (auto) 0.20 10^3/uL (0.03-0.40) 04/29/18 21:40 Absolute Basos (auto) 0.02 10^3/uL (0.02-0.10) 04/29/18 21:40 Absolute Nucleated RBC 0.00 10^3/uL (0-0.01) 04/29/18 21:40 Immature Gran % 0.6 % (0.0-1.1) 04/29/18 21:40 Immature Gran # 0.04 10^3/uL (0.00-0.10) 04/29/18 21:40 PT 17.2 SEC (12.0-15.0) H 04/29/18 21:40 INR 1.39 (0.83-1.16) H 04/29/18 21:40 POC Sodium 134 mEq/L (135-145) L 04/29/18 21:25 Sodium 130 mEq/L (135-145) L 04/29/18 21:40 POC Potassium 3.2 mEq/L (3.3-5.0) L 04/29/18 21:25 Potassium 3.5 mEq/L (3.3-5.0) 04/29/18 21:40 POC Chloride 95 mEq/L (97-110) L 04/29/18 21:25 Chloride 96 mEq/L (97-110) L 04/29/18 21:40 Carbon Dioxide 26 mEq/l (22-31) 04/29/18 21:40 Anion Gap 8 mEq/L (8-16) 04/29/18 21:40 POC BUN 7 mg/dL (7-23) 04/29/18 21:25 BUN 9 mg/dL (7-23) 04/29/18 21:40 Creatinine 0.6 mg/dL (0.6-1.0) 04/29/18 21:40 POC Creatinine 0.6 mg/dL (0.6-1.0) 04/29/18 21:25 Estimated GFR > 60 04/29/18 21:40 Glucose 100 mg/dL (70-100) 04/29/18 21:40 POC Glucose 110 mg/dL (70-100) H 04/29/18 21:25 Calcium 9.7 mg/dL (8.5-10.4) 04/29/18 21:40 Urine Color PALE YELLOW 04/29/18 21:40 Urine Appearance CLEAR 04/29/18 21:40 Urine pH 7.0 (5.0-7.5) 04/29/18 21:40 Ur Specific [place] 1.006 (1.002-1.030) 04/29/18 21:40 Urine Protein 1+ (NEGATIVE) H 04/29/18 21:40 Urine Ketones NEGATIVE (NEGATIVE) 04/29/18 21:40 Urine Blood 1+ (NEGATIVE) H 04/29/18 21:40 Urine Nitrate NEGATIVE (NEGATIVE) 04/29/18 21:40 Urine Bilirubin NEGATIVE (NEGATIVE) 04/29/18 21:40 Urine Urobilinogen NEGATIVE EU (0.2-1.0) 04/29/18 21:40 Ur Leukocyte Esterase NEGATIVE (NEGATIVE) 04/29/18 21:40 Urine RBC 5-10 /hpf (0-3) H 04/29/18 21:40 Urine WBC 1-3 /hpf (0-3) 04/29/18 21:40 Ur Epithelial Cells NONE SEEN /lpf (NONE-1+) 04/29/18 21:40 Urine Glucose NEGATIVE (NEGATIVE) 04/29/18 21:40 Imaging Review: Imaging Impressions Head CT 04/29/18 21:26 Impression: No findings for acute infarct or intracranial hemorrhage. Mild periventricular and deep hemispheric white matter change can be seen with small vessel ischemic change. Old small infarct left parietal lobe. Results called and discussed with Braxton Hinton MD at 04/29/2018 22:14. Head CTA 04/29/18 21:26 Impression: Mild atherosclerotic calcifications intracranial carotid arteries bilaterally without flow significant stenosis or evidence for thrombus. Otherwise unremarkable. CT Angiogram Neck With Contrast Enhancement and Multiplanar Reconstructions History: Word finding difficulties. Technique: 1.25 mm axial multidetector helical CT imaging was performed through the neck while 85 mL Isovue-370 were injected intravenously without complication. The images were then transferred to an independent workstation where multiplanar and three-dimensional reconstructions were performed by the interpreting physician and reviewed at multiple windows. Dose reduction techniques were utilized. CTA Findings: Normal branching of the great vessels. Mild atherosclerotic calcification is seen at the carotid bulb bilateral without flow significant stenosis. No evidence for dissection. Both vertebral arteries are patent with the left being dominant. No flow significant stenosis or dissection in either vertebral artery. CT Neck Findings: Multilevel degenerative disk and degenerative joint disease in the cervical spine. No significant spondylolisthesis. No evidence for prevertebral soft tissue swelling. Multiple nodules are seen in the thyroid gland which have been evaluated previously with thyroid ultrasound January 2017. Impression: 1. No flow significant stenosis or dissection in either carotid artery or vertebral artery. 2. Other chronic findings as above. Measurement of carotid stenosis is based on the residual internal carotid diameter with [place] Symptomatic Carotid Endarterectomy Trial (NASCET) based stenosis levels. Results called and discussed with Braxton Hinton MD at 04/29/2018 22:19. Neck CTA 04/29/18 21:26 Impression: Mild atherosclerotic calcifications intracranial carotid arteries bilaterally without flow significant stenosis or evidence for thrombus. Otherwise unremarkable. CT Angiogram Neck With Contrast Enhancement and Multiplanar Reconstructions History: Word finding difficulties. Technique: 1.25 mm axial multidetector helical CT imaging was performed through the neck while 85 mL Isovue-370 were injected intravenously without complication. The images were then transferred to an independent workstation where multiplanar and three-dimensional reconstructions were performed by the interpreting physician and reviewed at multiple windows. Dose reduction techniques were utilized. CTA Findings: Normal branching of the great vessels. Mild atherosclerotic calcification is seen at the carotid bulb bilateral without flow significant stenosis. No evidence for dissection. Both vertebral arteries are patent with the left being dominant. No flow significant stenosis or dissection in either vertebral artery. CT Neck Findings: Multilevel degenerative disk and degenerative joint disease in the cervical spine. No significant spondylolisthesis. No evidence for prevertebral soft tissue swelling. Multiple nodules are seen in the thyroid gland which have been evaluated previously with thyroid ultrasound January 2017. Impression: 1. No flow significant stenosis or dissection in either carotid artery or vertebral artery. 2. Other chronic findings as above. Measurement of carotid stenosis is based on the residual internal carotid diameter with [place] Symptomatic Carotid Endarterectomy Trial (NASCET) based stenosis levels. Results called and discussed with Barxton Hinton MD at 04/29/2018 22:19. Visualized and Interpreted EKG results: Yes EKG Interpretation: Positive for: normal sinsus rhythm, other (PACs) Assessment & Plan Assessment: 77 yo F w/ hx of multiple strokes, AF, PFO, HTN and recently diagnosed pelvic mass presents with word finding difficulty. Plan: 1. Acute TIA w/ hx of multiple prior strokes - Presents with 15 minutes of word finding difficulty and mouth numbness, now resolved. Patient is currently off her Plavix due to preparation for upcoming abdominal surgery. She has had extensive risk factor modification noting her history of multiple prior strokes. She has had a CEA, has a known PFO, and is usually compliant with apixaban, statin, and Plavix (currently on hold). CT, CTA Head/Neck unremarkable ; in sinus rhythm. - Admit for observation - MRI brain ordered (patient has Linq monitor in place, per my review it seems this is compatible with MRI but would confirm with cardiology) - Will hold off on TTE noting she has known PFO and is already on anticoagulation - Check lipid panel, A1c with morning labs - PT/OT/EQUIPMENT OILER evaluations - Neurology consultation placed 2. Recently diagnosed abdominal mass - Patient was recently admitted for this. Her Plavix is on hold for upcoming abdominal surgery. 3. Hyponatremia - Mild, serum Na 130 on admission. Will trial 500 mL NS and recheck BMP in the morning. 4. pAF - On apixaban, in sinus rhythm on admission. 5. HTN - Continue home medications 6. Hx PFO 7. Hx CEA Diet - Regular pending swallow evaluation Code - Full Ppx - SCDs Dispo - Admit under observation status
[2018-04-30] MEDS ORDERED: NS 500 ML IV ONE (00:11)
[2018-04-30 05:11] LABS: PLATELET COUNT 317 10^3/uL (150-400)
--- NOTE | 2018-04-30 09:54 | ASMTCMCOM ---
CM Note CM Note Notes: Chart reviewed. Patient just dc'd from [address] [place] [address] 2 days ago. She needs evaluation of pelvic mass. She had been on eliquis for hx CVA, PAF, and PFO. At some point she was to transition to lovenox subcutaneous injections BID. She presented to the ED with numbness of mouth and is r/o TIA. Her daughter is involved in her care. CM to follow. Needs TBD. Plan: TBD Date Signed: 04/30/2018 09:53 AM Electronically Signed By:Krystina Landers RN
[2018-04-30 12:07] VITALS: BP 154/99
[2018-04-30] MEDS ORDERED: FUROSEMIDE 20 MG TAB PO PRN (12:20)
[2018-04-30] MEDS ORDERED: ALBUTEROL 60 PUFFS/8 GM MDI IH PRN (12:20)
[2018-04-30] MEDS ORDERED: oxyCODONE IR 5 MG TAB PO PRN (12:20)
[2018-04-30] MEDS ORDERED: Tofacitinib Citrate [Xeljanz] 5 MG PO SCH (12:30)
[2018-04-30] MEDS ORDERED: POTASSIUM CL 20 MEQ TAB PO SCH (12:30)
[2018-04-30] MEDS ORDERED: DILTIAZEM CD 180 MG CAP PO SCH (12:30)
[2018-04-30] MEDS ORDERED: NEBIVOLOL HCL 5 MG TAB PO SCH (12:30)
[2018-04-30] MEDS ORDERED: IRBESARTAN 150 MG TAB PO SCH (12:30)
--- NOTE | 2018-04-30 12:32 | NEUROPROG ---
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 Patient was discharged from our facility 04/27 after multiple Gi symptoms resulted in the discovery of a large abdominal mass. She is on apixaban and clopidogrel for vascular prevention. Surgery is being planned later this month. Clopidogrel has been held as of 2 days ago, but she remains on apixaban. She notes she has been quite anxious with the recent diagnosis of an abdominal mass. She woke up yesterday not feeling well. She has nausea, frequent belching and early satiety, making eating/drinking difficult. In the afternoon she went to speak to her daughter on the phone. Daughter is at bedside. Patient reports feeling difficulty finding words and also getting words out that she wanted to say. This was accompanied by perioral tingling and tongue tingling. She hung up the phone and got up to walk and felt a bit weak in both legs, like they were both Jell-o. Symptoms resolved after 15 mins. Daughter didn't notice any real speech/language issues on the phone with the patient, though, states the patient paused a couple times to find the right word. These symptoms inspired ED visit. Her intake BP was noted to be in the 180s on 2 measures and she has been persistently hypertensive during this admission. She does endorse ongoing anxiety with her abdominal mass diagnosis and planned surgery. She did not have any focal/lateralizing weakness, sensory loss, slurred speech, visual disturbance, dizziness, hearing change, gait change. ROS: As per the HPI, otherwise a complete 12 point ROS was performed and is negative ALLERGIES AND MEDS: As recorded in the EMR - reviewed and reconciled PFSH: As per the intake H&P by Dr. Granados from yesterday EXAM: VS reviewed in EMR GEN: WDWN sitting in NAD HEENT: NCAT, sclera anicteric, conjunctiva not injected, MMM, oropharynx clear, no scalp tenderness NECK: supple, nontender, no meningismus CV: RRR s1 s2 w grade 2 systolic murmur best at LUSB. Carotid pulses 2+ wo bruit NEURO: MS: awake, alert, oriented to all spheres. Speech nondysarthric. No language disturbance. Follows commands. Attends to both sides. Recent/remote memory grossly intact. Mood euthymic. Good fund of knowledge. CN: pupils 3mm round and reactive. Unable to visualize fundi. VFF. Primary gaze centered. Full ocular motility. Facial sensation preserved. Face symmetric. Hearing grossly intact to finger rub. Palatoglossal movements intact. Shoulder shrug and head turn strong. MOTOR: normal bulk/tone. No adventitial movements. Full power throughout. SENSORY: intact/symmetric LT/PP in all extremities. No extinction. COORD: no ataxia FN/HS. William preserved. REFLEX: plantars down. No clonus. Absent ankle jerks, other DTRS 2/4. GAIT: deferred to PT safety eval DATA REVIEW: Labs reviewed in EMR LDL 53 A1c pending PERSONALLY INTERPRETED RESULTS AND DATA: CT head wo - nothing acute, small chronic left parietal infarct, signal attenuation in the deep white matter most reflective of chronic microvascular ischemic changes. CTA head/neck - mild atherosclerotic plaque in bilateral carotid bulbs and intracranial carotid segments - non flow limiting. IMPRESSION AND RECOMMENDATIONS: // TRANSIENT LANGUAGE DISTURBANCE // HX STROKE // HTN // HLD // AFIB // ABDOMINAL MASS Patient with transient episode of mild word finding difficulty and expressive language dysfunction. This was accompanied by perioral tingling and a sense of bilateral leg weakness (though able to ambulate). Differential would include HTN emergency, anxiety reaction, recrudescence of old stroke symptoms from medical condition, TIA, stroke with rapidly resolving deficits. At this point, investigation into potentially modifiable causes of stroke have been exhausted with CTA head/neck. She has known afib/PFO and is anticoagulated. Her clopidogrel was only stopped 2 days ago, so she still has antiplatelet activity with circulating platelets (hasn't been long enough to turn over these involved platelets). She is on appropriate statin therapy with LDL at goal < 70. She is not known to be diabetic, but A1c is pending and can be followed as an outpatient for goal < 6.5. Her BP remains elevated, and I recommend reinstitution of anti-HTN medication and close follow up with PCP. Question of the need for MRI has been raised by patient and family. Given the unremarkable CTA findings, I don't think MRI is going to add much value, as she is already on maximum medical therapy and should have aggressive risk factor management given her prior history of stroke. 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 Her abdominal mass could pose a risk of metastatic disease if this were a non- benign malignancy, but she is scheduled for surgical removal soon, and pathologic investigation into the mass will determine the degree of surveillance needed thereafter. They understand the risk of vascular events being off clopidogrel after 7-10 days and are in acceptance of this risk to pursue removal of the patient's abdominal mass. She will follow up with PCP within 1 week for ongoing vascular risk factor monitoring and optimization (particularly BP) and she will discuss anxiety with her PCP at that time. Will sign off. Objective: Vital Signs Temp Pulse Resp BP Pulse Ox 36.9 C 68 22 H 154/99 H 94 04/30/18 12:00 04/30/18 12:00 04/30/18 12:00 04/30/18 12:00 04/30/18 12:00 Laboratory Results 04/30/18 04:37 04/30/18 04:37 PT 17.2 SEC (12.0-15.0) H 04/29/18 21:40 INR 1.39 (0.83-1.16) H 04/29/18 21:40 Allergies/Adverse Reactions: aspirin Allergy (Mild, Verified 04/26/18 11:30) morphine Allergy (Verified 04/26/18 17:13) Vomiting
--- NOTE | 2018-04-30 13:29 | PDDCSUM ---
Discharge Summary Discharge Summary: DISCHARGE DIAGNOSES: * acute word finding difficulty and tongue numbness resolved, suspicion for TIA * nausea and abdominal bloating, likely multifactorial * no new pelvic mass, scheduled for surgery later this month CONSULTANTS: Dr. Judson Garber PROCEDURES: CT head CT angio head and neck HOSPITAL COURSE SUMMARY: This patient who has known AFib on anticoagulation and is on chronic platelet inhibitors as well, with history of prior stroke, comes in the hospital after a brief and resolved episode of word-finding difficulty and tongue numbness. There were no other neurologic symptoms, no headaches, no signs of bleeding, no fevers, and no acute cardiac symptoms. Here her neuro exam is unremarkable and she has had no recurrent sxs. Her BPs were initially a bit high but improved. She has no sign of fever or infection. Imaging studies showed only evidence of her prior ischemic stroke, no bleeding or vascular abnormalities or other concerning changes. She was observed here overnight on cardiac monitoring with good heart rate control. She is on full anticoagulation with Eliquis. She was seen by Dr. Ambrocio Kinsey of Neurology. The recommendation at this time is to continue all of her ongoing stroke prevention measures which include platelet inhibition anticoagulation, blood pressure and sugar control and lipid control. She is felt stable for discharge at this time. The patient did complain of worsening upper abdominal discomfort after eating along with a fair bit of nausea but no vomiting. Notably she has a past history of dyspepsia that has responded well to Nexium. She has not been using any nonsteroidal anti-inflammatory meds. Also notable is that she has recently diagnosed with a large pelvic mass. She does admit that stools have become smaller, and harder to pass with some discomfort passing them. There is no evidence of any bleeding. At this point her symptoms could potentially be related to partial obstruction from her mass, or to peptic disease. The could potentially be other issues such as gallbladder. She did have a CT scan as mentioned just recently which did not show any other concerning features. On my examination today she does not appear to have ascites and she has normal bowel sounds with a soft nondistended abdomen that is not tender. My recommendation at this point is that she start using Nexium twice a day along with some Colace and use Ensure to make sure she is getting enough nutrition and. She can eat other foods as tolerated and it is recommended that she eat very slowly continuously through the day as opposed to having large meals. She understands that if she has worsening symptoms she should seek out appropriate attention. I did encourage her to see Dr. Leggett this week in clinic to review how she is doing with the symptoms She has an appointment set up with Dr. Chan later this month for surgery for her abdominal mass. She will keep all of her scheduled appointments and plans regarding switching off of her anticoagulant and bridging with Lovenox. PENDING TEST RESULTS: none MEDICATION CHANGES: nexium 20 mg bid colace bid FOLLOW-UP PLAN: with Dr Leggett this coming week with Dr Chan as previously planned Greater than 35 minutes bedside and care coordination time today
[2018-04-30] MEDS ORDERED: ATORVASTATIN CALCIUM 40 MG TAB PO SCH (21:00)
== END 2018-04-30 14:23 | disposition home or self-care (01) ==
LOC: F3N 23:48
PROVIDERS: ADMIT Student in an Organized Health Care Education/Training Program; ATTEND Student in an Organized Health Care Education/Training Program
DX: R47.89 Other speech disturbances (principal); R11.0 Nausea; R19.00 Intra-abdominal and pelvic swelling, mass and lump, unspecified site; I48.91 Unspecified atrial fibrillation; I10 Essential (primary) hypertension; M50.31 Other cervical disc degeneration, high cervical region; Z79.01 Long term (current) use of anticoagulants; Z88.6 Allergy status to analgesic agent; Z87.891 Personal history of nicotine dependence
CPT/HCPCS: 70450; 70496; 70498; 93005; 99285; G0378; J2405; Q9967; 82435-PO; 82565-PO; 82947-PO; 84132-PO; 84295-PO; 84520-PO; 85014-PO

== ENCOUNTER 2018-09-29 16:14 | Emergency (ER) | payer OTHER ==
--- NOTE | 2018-09-29 17:37 | EDPHY ---
H & P Stated Complaint: leg swelling Time Seen by Provider: 09/29/18 16:40 HPI/ROS: CHIEF COMPLAINT: Bilateral leg swelling HISTORY OF PRESENT ILLNESS: 78-year-old female presents with bilateral leg swelling. Onset of pedal edema 2 days ago, gradually increasing. Ambulating more than usual in the past few days. The swelling is moderate and is nonpainful. No shortness of breath or chest discomfort. Previously had pedal edema and took Lasix with relief. Not on diuretics currently. No recent change in medications. REVIEW OF SYSTEMS: complete 10 point ROS reviewed and is negative except for the noted elements in the HPI - Personal History Current Tetanus Diphtheria and Acellular Pertussis (TDAP): Yes - Medical/Surgical History Hx Asthma: Yes Hx Chronic Respiratory Disease: Yes Hx Diabetes: No Hx Cardiac Disease: Yes Hx Renal Disease: No Hx Cirrhosis: No Hx Alcoholism: No Hx HIV/AIDS: No Hx Splenectomy or Spleen Trauma: No Other PMH: HTN, CAROTID STENOSIS, CVA ,TIA, Rheumatoid artheritis, hyperlipidemia, a fib, asthma, carotid surgery, stomach ca. Patent foramina ovale? Stroke [address] [facility] thought to be related to a disrupted carotid plaque. Atrial tachycardia - Social History Smoking Status: Former smoker Alcohol Use: Sober Drug Use: None - Physical Exam Exam: General Appearance: Alert, pleasant Eyes: Pupils equal and round, no conjunctival pallor ENT, Mouth: Mucous membranes moist Neck: Normal inspection Respiratory: Lungs are clear to auscultation, no rales Cardiovascular: Regular rate and rhythm Gastrointestinal: Abdomen is soft and nontender Neurological: A&O, nonfocal exam Skin: Warm and dry Extremities: 2+ bilateral pedal edema Psychiatric: Mood and affect normal Constitutional: Initial Vital Signs Temperature (C) 36.9 C 09/29/18 16:39 Heart Rate 80 09/29/18 16:39 Respiratory Rate 16 09/29/18 16:39 Blood Pressure 162/90 H 09/29/18 16:39 O2 Sat (%) 95 09/29/18 16:39 O2 Delivery Mode Room Air Allergies/Adverse Reactions: aspirin Allergy (Mild, Verified 05/18/18 16:13) "HEART BEAT HARD" morphine Allergy (Verified 05/18/18 16:13) Vomiting oxycodone Allergy (Verified 05/18/18 16:13) SEVERE NAUSEA Home Medications: Medication Instructions Recorded Albuterol [Proventil Inhaler HFA 1 - 2 puffs IH Q4H PRN 03/21/17 (*)] Atorvastatin Calcium [Lipitor 40 40 mg PO HS 03/21/17 mg (*)] Apixaban [Eliquis] 5 mg PO BID 10/22/17 Furosemide [Lasix 20 MG (*)] 20 mg PO DAILY PRN 01/24/18 Diltiazem HCl [Diltiazem 24Hr Cd] 360 mg PO DAILY 04/26/18 Potassium Chloride 20 meq PO DAILY 04/26/18 Acetaminophen [Tylenol 325mg (*)] 650 mg PO Q4HRS PRN tab 04/27/18 Ondansetron Odt [Zofran Odt 4 mg 4 mg PO Q4HRS PRN #30 tab 04/27/18 (*)] Docusate Sodium [Colace 100 MG (*)] 200 mg PO DAILY 05/12/18 Irbesartan [Avapro 75 mg (*)] 75 mg PO DAILY 05/12/18 Nebivolol HCl [Bystolic] 10 mg PO DAILY 05/12/18 Tofacitinib Citrate [Xeljanz Xr] 11 mg PO DAILY 05/12/18 Cholecalciferol (Vitamin D3) 10,000 units PO DAILY 05/18/18 [Vitamin D3] Furosemide [Lasix 20 MG (*)] 20 mg PO DAILY PRN #10 tab 09/29/18 Potassium Cl [Klor-Con 20 meq (*)] 20 meq PO DAILY PRN #10 tab 09/29/18 Medical Decision Making ED Course/Re-evaluation: This pt presents with BLE pedal edema, with h/o similar sx in past. No evidence of acute pulm edema, DVT or other indication for admission/further eval. Old medical record reviewed, on Lasix 20mg in past. Will rx with Lasix 20mg on a prn dosing schedule. Encouraged to use compression stockings and to elevate legs when possible. f/u cards. Differential Diagnosis: includes though not limited to CHF, DVT, venous stasis, renal failure - Data Points Laboratory Results: Laboratory Results 09/29/18 13:24 09/29/18 13:24 Departure - Departure Disposition: Home, Routine, Self-Care Clinical Impression: Pedal edema Condition: Good Instructions: Leg Edema (ED) Additional Instructions: Take Lasix 1 tablet tomorrow morning. If swelling persists, you may take Lasix one tablet every morning until swelling subsides. If swelling persists for more than 3 days, see your doctor. Return for worsening symptoms, shortness of breath, any concerns. Referrals: Angie Elizalde MD [Primary Care Provider] - As per Instructions Laurent Rivera MD [Medical Doctor] - As per Instructions (Call to make an appointment.) Prescriptions: Furosemide [Lasix 20 MG (*)] 20 mg PO DAILY PRN #10 tab PRN Reason: leg swelling Potassium Cl [Klor-Con 20 meq (*)] 20 meq PO DAILY PRN #10 tab PRN Reason: use with Lasix
[2018-09-29 18:02] VITALS: BP 155/98
[2018-09-29 18:10] LABS: PLATELET COUNT 133 10^3/uL (150-400)
== END 2018-09-29 18:51 | disposition home or self-care (01) ==
DX: R60.9 Edema, unspecified (principal); J45.909 Unspecified asthma, uncomplicated; I48.91 Unspecified atrial fibrillation; I25.10 Atherosclerotic heart disease of native coronary artery without angina pectoris; M06.9 Rheumatoid arthritis, unspecified; E78.5 Hyperlipidemia, unspecified; Z87.891 Personal history of nicotine dependence; Z86.73 Personal history of transient ischemic attack (TIA), and cerebral infarction without residual deficits

== ENCOUNTER → 2018-12-25 | Outpatient (CLI) | payer OTHER | LOC: CIMAGING 18:26 | PROVIDERS: ATTEND Family Medicine | DX: R05 Cough (principal); I51.7 Cardiomegaly; I27.20 Pulmonary hypertension, unspecified; M95.4 Acquired deformity of chest and rib | CPT/HCPCS: 71046-PO ==